=== PATIENT | female | born 1980 | race Caucasian/White ===

== ENCOUNTER → 2018-03-21 09:11 | Outpatient (CLI) | payer MEDICAID, SELFPAY ==
[2018-03-21 12:06] LABS: Erythrocyte Sedimentation Rate 35 mm/hr (0-20)
[2018-03-21 12:26] LABS: AST(SGOT) 39 U/L (15-37); Alanine Aminotransfer ALT/SGPT 67 U/L (13-56); Albumin, Serum 3.5 g/dL (3.2-5.0); Alkaline Phosphatase 103 U/L (45-117); Bilirubin, Direct 0.13 mg/dL (0.00-0.30); Globulin 4.7 g/dL (2.2-4.2); Protein, Total 8.2 g/dL (6.4-8.2)
[2018-03-22 05:08] LABS: Hepatitis C Ab <0.1 s/co ratio (0.0-0.9)
[2018-03-22 08:50] LABS: Vitamin D,25 Hydroxy 35.3 ng/mL (29.95-100.01)
== END ==
PROVIDERS: Family Provider Specialist; PCP Specialist; Visit Provider Specialist
DX: K76.0 Fatty (change of) liver, not elsewhere classified (principal)
CPT/HCPCS: 36415; 80076; 82306; 85652; 86803; 86804

== ENCOUNTER → 2019-01-01 11:07 | Outpatient (CLI) | payer MEDICAID, SELFPAY ==
--- NOTE | 2019-01-01 11:12 | RAD_ITS ---
STUDY: X-RAY - LUMBAR SPINE REASON FOR EXAM: Female, 38 years old. Chronic low back pain TECHNIQUE: 5 view(s) of the lumbar spine were obtained. COMPARISON: None FINDINGS: Normal lumbar lordosis. There is no substantial scoliosis. There is a normal alignment of the vertebrae. Normal vertebral bodies and endplates. Normal disc space heights. The soft tissue structures are unremarkable. RAD/L/S Spine Min 4 Views IMPRESSION: Normal x-ray examination of the lumbar spine. Electronically Signed: Rosalio Bravo DO at 9:39 EST Tel , Service support ,
[2019-01-01 12:41] LABS: Absolute Neutrophil Count 3.7 X10^3/uL (2.0-7.7); Basophil# 0.03 X10^3/uL; Basophil% 0.5 % (0-1); Eosinophils% 1.6 % (0-5); Hematocrit 46.5 % (37-47); Hemoglobin 14.8 g/dl (12.0-15.0); Lymphocyte % 33.2 % (19-41); Mean Corp Hgb Conc 31.8 g/gl (32-36); Mean Platelet Vol. 9.8 fl (6.2-12.0); Monocyte# 0.42 X10^3/uL; Monocyte% 6.6 % (0-10); Neutrophil # 3.67 X10^3/uL (2.7-7.7); Neutrophil % 57.9 % (47-70); Platelet Count 289 K/mm3 (150-450); RBC Distribution Width CV 13.3 % (11.6-14.6); Red Blood Count 5.11 M/mm3 (4.2-5.4); White Blood Count 6.3 K/mm3 (4.4-11.0)
[2019-01-01 12:45] LABS: POSITIVE COUNT NO; POSITIVE DIFFERENTIAL NO; POSITIVE MORPHOLOGY NO
[2019-01-01 13:02] LABS: ALB/GLOB Ratio 0.8 RATIO (0.9-2.4); AST(SGOT) 35 U/L (15-37); Alanine Aminotransfer ALT/SGPT 66 U/L (13-56); Albumin, Serum 3.5 g/dL (3.2-5.0); Alkaline Phosphatase 102 U/L (45-117); Anion Gap 8 (5-15); BUN 9 mg/dL (7-18); BUN/Creat Ratio 13.1 RATIO (10-20); Calcium,Total 8.5 mg/dL (8.5-10.1); Chloride 108 mmol/L (98-107); Cholesterol 167 mg/dL (200); Creatinine, Serum 0.69 mg/dL (0.55-1.02); EST Glomerular Filtration Rate 100 mL/min (>60); Est Glom Filt Rate - Afr Amer 121 mL/min (>60); Globulin 4.6 g/dL (2.2-4.2); Glucose 85 mg/dL (74-106); Hemoglobin A1c 5.5 % (4.2-6.3); High Density Lipoprotein 38 mg/dL; Potassium 4.1 mmol/L (3.5-5.1); Protein, Total 8.1 g/dL (6.4-8.2); Sodium Level 139 mmol/L (136-145); Thyroid Stim Hormone (TSH) 1.91 uIU/mL (0.358-3.74); Triglycerides 94 mg/dL; Very Low Density Lipoprotein 19 mg/dL (5-40)
[2019-01-01 13:03] LABS: Vitamin B12 749 pg/mL (211-911)
[2019-01-04 13:23] LABS: HEPATITIS B SURFACE AG Negative (Negative); Hep B Surface Antibodies Non Reactive (.); Hep C Antibodies <0.1 s/co ratio (0.0-0.9); Vitamin B1, Thiamine 134.9 nmol/L (66.5-200.0)
== END ==
PROVIDERS: Family Provider Family Medicine; PCP Family Medicine; Referring Provider Family Medicine; Visit Provider Family Medicine
DX: E55.9 Vitamin D deficiency, unspecified (principal); G62.9 Polyneuropathy, unspecified; R73.02 Impaired glucose tolerance (oral); E66.9 Obesity, unspecified; E04.1 Nontoxic single thyroid nodule; R94.5 Abnormal results of liver function studies; M54.16 Radiculopathy, lumbar region
CPT/HCPCS: 36415; 72110; 80053; 80061; 82306; 82607; 83036; 84425; 84439; 84443; 85025; 86706; 86803; 87340

== ENCOUNTER → 2019-01-08 08:55 | Outpatient (CLI) | payer MEDICAID, SELFPAY ==
--- NOTE | 2019-01-08 08:58 | US_ITS ---
HISTORY: THYROID NODULE TECHNIQUE: [place] scale and color doppler imaging was performed of the thyroid gland. COMPARISON: None FINDINGS: # of images incl. paperwork: 72 RIGHT THYROID LOBE: 5.1 x 2.0 x 1.9 cm. Homogeneous echotexture with normal vascularity. Isoechoic to thyroid parenchyma nodule in the posterior aspect of the lower pole, 1.0 cm diameter. This is a solid nodule with peripheral and intra-nodule vascularity. LEFT THYROID LOBE: 4.5 x 1.4 x 2.1 cm. Homogeneous echotexture with normal vascularity. 0.6 cm diameter cystic avascular nodule in the upper pole. 0.4 cm diameter cystic avascular nodule in the lower pole. ISTHMUS: 0.5 cm thick. No thyroid nodules are present. US/Thyroid IMPRESSION: 1 cm diameter isoechoic nodule lower pole right thyroid. This has low suspicion ultrasound appearance. Per THERESA guidelines, consider either referral for biopsy or six-month follow-up ultrasound to assess for stability. at 0324 Reported and signed by: Mikey Armendariz MD Electronically Signed: Mikey Armendariz, at 3:23 EST Tel , Service support ,
== END ==
PROVIDERS: Family Provider Family Medicine; PCP Family Medicine; Referring Provider Family Medicine; Visit Provider Family Medicine
DX: E04.1 Nontoxic single thyroid nodule (principal)
CPT/HCPCS: 76536

== ENCOUNTER → 2019-01-30 14:36 | Outpatient (CLI) | payer MEDICAID, SELFPAY ==
[2019-01-16 13:21] VITALS: BMI 37.5
--- NOTE | 2019-01-30 | ASPIG_PTH ---
PATIENT: LAURIE ARMSTRONG LOC: U#:[id number] AGE/SX: 45/F ROOM: RE01/30/[address]: Dr. Arnie Terrell MD : 1980 BED: DIS: SPEC #: [id number] RECD: 01/30/19 15:27 STATUS: MARCEL HUSAM #: [id number] FRANCESCA: 01/30/19 00:[address]: Arnie Terrell DEPT: CYTOLOGY RECD BY: Dewey Latham ENTERED: 01/30/19 15:27 SP TYPE: ASP OUT OTHR DR: Dr. Cyrus Barahona MD Tissues: Thyroid gland, NOS Procedures: FNA Specimen Adequacy Special Stain Group II Surgery Specimen Level IV Cytology Other HEADER OPERATION: Ultrasound-guided right thyroid biopsy PRE-OP DIAGNOSIS: Right thyroid nodule TISSUE SUBMITTED: Right thyroid nodule, FNA, ultrasound-guided DIAGNOSIS CYTOLOGY Right thyroid nodule, ultrasound-guided FNA (smears, cytospin and cell block): Consistent with benign colloid nodule. Adequate for evaluation. TREY:jazz 01/31/19 COMMENT The specimen is evaluated at the time of FNA by Dr. Christy. Immediate Evaluation = A few follicular cells and colloid are noted. Case has been reviewed in consultation with Dr. Ballesteros who concurs with the above diagnosis. IDC:AM CYTOLOGY STUDY Slides are reviewed. CYTOLOGY GROSS Received in four passes is 0.2 ml of bloody fluid labeled with the patient's name, and designated right thyroid nodule. Four imprints and four paps are made from the submitted fluid and the rest is added to CytoLyt for cell block preparation. Submitted for cytology study. / TREY:jazz 01/30/19 TC:5 CPT: 38167, 54593, 17596, 93516
--- NOTE | 2019-01-30 14:38 | US_ITS ---
PROCEDURE: ULTRASOUND-GUIDED FINE-NEEDLE ASPIRATION OF THE RIGHT THYROID LOBE NODULE INDICATION: Female, 39 years old. Thyroid nodule Ultrasound guidance FINDINGS: Right thyroid lobe nodule. The biopsy is performed by Arnie Steward MD US/FNA 1st Biopsy w/ US IMPRESSION: Right thyroid lobe nodule biopsy. Electronically Signed: Pati Carpenter, at 16:18 EDT Tel , Service support ,
--- NOTE | 2019-01-31 07:21 | PCM.OPRPT ---
Problem List (1) Multinodular goiter (nontoxic) Status: Acute Report of Operation Date of Procedure: 01/30/19 Pre-Operative Diagnosis: Multinodular goiter Post-Operative Diagnosis: Same Surgery/Procedure Performed:: Ultrasound-guided fine-needle aspiration of dominant right thyroid nodule Type of Anesthesia:: Local Description of Procedure: Patient was brought into the ultrasound room. Placed in the supine position. Ultrasound of the right neck revealed a vague nodule in the inferior aspect of the lobe. I prepped the skin with alcohol. I injected 1% lidocaine plain. Under ultrasound guidance I aspirated out this nodule 4 times. This was immediately handed off to the pathologist. She said she saw some rare follicular cells and colloid I decided that I was not going to do any further biopsies on her at this time given the vagueness of this nodule I think the incidence of having a false positive would be too high and she started to have some bruising within the gland itself and I did not feel it was safe to continue. - Admit VTE Documentation VTE Present on Admission: No VTE Mechan Device Prophylaxis: None VTE Pharm Prophylaxis ordered?: No Reason prophylaxis not ordered:: Treatment Not Indicated
== END ==
PROVIDERS: Family Provider Family Medicine; PCP Family Medicine; Referring Provider Surgery; Visit Provider Surgery
DX: E04.2 Nontoxic multinodular goiter (principal)
CPT/HCPCS: 10005; 88161; 88172; 88305; 88313

== ENCOUNTER 2019-03-05 17:00 | Outpatient (RCR) | payer MEDICAID, SELFPAY ==
[2019-01-16 13:21] VITALS: BMI 37.5
--- NOTE | 2019-01-31 14:00 | HP.PTEVAL_ITS ---
Patient's Visit Information LAURIE ARMSTRONG is a 39 year old F referred to Physical Therapy by Cyrus Barahona MD with a diagnosis of LUMBAR RADICULOPATHY WITH NEUROPATHY. Date of Evaluation: 01/31/19 Physical Therapist: Jenna Decker, PT, Cert MDT - Visit Plan Frequency: 2-3x /Week Duration: 4-6 Weeks Plan: AQUATIC THERAPY FOR PAIN RELEIF, POSTURE CORRECTION/STRENGTHENING, INSTRUCTION IN APPROPRIATE BODY MECHANICS AND ACTIVITY MODIFICATIONS. DLS STARTING WITH A NEUTRAL SPINE PROGRESSING ROM TOLERATED. MORALES LE ROM, STRETCHING AND STRENGTHENING. HEP INSTRUCTION. 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 Disability: NO. Present symptoms: CENTRAL LOW BACK, RIGHT THIGH, RIGHT LEG AND RIGHT FOOT PAIN NUMBNESS AND TINLGIN. OUTSIDE OF FOOT GETS NUMB AND TINGLY. Present since: ABOUT A YEAR AGO. UNCHANGING. Pain Scale: WORST 7/10, LEAST 2/10. Currently: 3/10. Commenced as a result of: NO APPARENT REASON. Symptoms at onset: LOW BACK. Worse: PROLONGED STANDING, PROLONGED SITTING, RIGHT SDLY, SUPINE LYING, BENDING, LIFTING, TWISTING, PROLONGED WALKING. Better: IBUPROFEN, FREQUENT CHANGE OF POSITION. Disturbed sleep: YES. Previous history/Previous treatment: NONE YET. ON GABAPENTIN. STATES THEY ARE TRYING TO SCHEDULE AN EMG. NO BACK SURGERY. NO BACK INJECTIONS. NO PT. NO CHIRO. Coughing/sneezing/straining: POSITIVE. Gait: PAINFUL AND LIMP ON RIGHT LE. SLOW. OFF BALANCE. DOES NOT USE ANY ASSISTIVE DEVICES. Difficulty initiating urinatin: NO. Accidents: NO. Unexplained weight loss: NO. Imaging: X-RAYS OF LOW BACK - NEGATIVE PER PATIENT REPORT - SEE [facility] EMR. PMH: FATTY LIVER. Recent major surgery: THYROID BIOPSY YESTERDAY - HAS NOT RECIEVED RESULTS YET. PLOF (Prior Level of Function): UNLIMITED. OTHER: FALL ABOUT A WEEK AGO WHEN SHE STOOD UP AND RIGHT LEG GAVE OUT ON HER. NO INJURIES. ABOUT 3 FALLS WITHIN THE LAST 6 WEEKS. - Objective Sitting Posture/Standing Posture: POOR. Active Correction of posture: WORSE. Other Observations: INDEP SLOW STEADY GAIT INTO PT WITH A MILD LIMP ON RIGHT LE AND NO AD'S OR LOB. Motor deficit: LLE 5/5 WITH MMT'ING EXCEPT HIP GRADED 4/5. RIGHT HIP 4-/5, KNEE EXT 4-/5, KNEE FLEX 4/5, ANKLE 5/5. Sensory deficit: DECREASED RIGHT LATERAL THIGH, LEG AND FOOT LIGHT TOUCH SENSATION. ROM deficit: TIGHT MORALES HAMSTRINGS AND GASTROC SOLEUS COMPLEX'S RIGHT > LEFT. Reflexes: LLE 2/3, RIGHT QUAC 1/2 AND RIGHT ACHILLES ABSENT. Dural Signs: POSITIVE RIGHT LE. Lumbar mvmt loss: flex - MOD. ext - MOD. R SG - MOD. L SG - MIN. Core strength: POOR. Palpation: TENDERNESS L345S1 REGION AND RIGHT PARASPINALS. OTHER: PATIENT IS RATHER QUIET DURING EVAL BUT IS PLEASANT AND COOPERATIVE. SHE COMMUNICATES A FAIR UNDERSTANDING OF INSTRUCTIONS (CANE AND LUMBAR SUPPORT IN SITTING) AFTER GIVEN. - Goals Goal 1:: DECREASE C/O LOW BACK AND MORALES LE SX'S. Goal Time Frame: 4-6 Weeks Goal 2:: IMPROVE SITTING, STANDING, WALKING, BENDING, LIFTING, ADL AND SLEEP FUNCTION Goal Time Frame: 4-6 Weeks Goal 3:: INSTRUCT IN PROPHYLAXIS Goal Time Frame: 4-6 Weeks - Rehabilitation Potential Rehabilitation Potential: Fair - Anticipated Interventions Patient/Client Instruction: Educate patient on: Condition, Plan of Care, Risk Factors, Benefits of Fitness Program For the Purpose of:: To improve self management Therapeutic Exercise to Include: Strength training, Body mechanics, Postural training, Flexibilty training, In an aquatic setting, Active ROM, Dynamic Lumbar Stabilization For the Purpose of:: To decrease pain, To increase ROM, To improve muscle performance and motor function, To increase tolerance to ac tivity/condition/position, To improve ability of physical actions for home/community/work/leisure Thank you for the opportunity to evaluate your patient. For Medicare and Medicare HMO plans, please review the plan of care and approve it. It will need to be FAXED BACK to us at [phone] for Medicare purposes. For Medicare only, by signing this I certify the plan of care. Please let me know if there are questions or concerns regarding this plan of care. Physician Signature: Date:
--- NOTE | 2019-02-26 10:21 | HP.PTREVAL ---
Cyrus Barahona MD, It has been my pleasure to treat LAURIE ARMSTRONG over the last 7 visits for LUMBAR RADICULOPATHY WITH NEUROPATHY. Please see the progress note below for an update on the physical therapy plan of care! Subjective: PATIENT REPORTS SHE ISN'T TAKING MUCH IBUPROFEN AND GABAPENTIN BECAUSE IT FEELS BETTER. SHE REPORTS SHE IS ABLE TO GET MORE DONE IN THE HOUSE NOW TOO - TAKES LESS BREAKES BECAUSE THE PAIN IS BETTER. RIGHT THIGH PAIN COMES AND GOES BUT LEG/CALF PAIN IS CONSTANT. EMG HAS NOT BEEN SCHEDULED YET AND PATIENT DOES NOT KNOW WHY. NO FALLS SINCE STARTING PT. THYROID BIOPSY WAS BENIGN. PATIENT REPORTS SHE LIKES THE WATER THERAPY AND WANTS TO KEEP COMING. SHE REPORTS NOTHING HAS HELPED HER PAIN SINCE IT STARTED ABOUT A YEAR AGO MORE THAN THIS. Objective/Function: PATIENT IS MAKING SLOW PROGRESS TOWARD ALL PT GOALS BUT STILL HAS CONSTANT RIGHT LEG PAIN AND DECREASED RIGHT LE LIGHT TOUCH SENSATION ALONG WITH ABSENT RIGHT ACHILLES DTR. INDEP STEADY GAIT INTO PT WITH A MILD LIMP ON RIGHT LE (BETTER) AND NO AD'S OR LOB. Motor deficit: LLE 5/5 WITH MMT'ING EXCEPT HIP GRADED 4/5. RIGHT HIP 4-/5, KNEE EXT 4/5, KNEE FLEX 4/5, ANKLE 5/5. Sensory deficit: DECREASED RIGHT LATERAL THIGH, LEG AND FOOT LIGHT TOUCH SENSATION. ROM deficit: TIGHT MORALES HAMSTRINGS AND GASTROC SOLEUS COMPLEX'S RIGHT > LEFT. Reflexes: LLE 2/3, RIGHT QUAC 1/2 AND RIGHT ACHILLES ABSENT. Dural Signs: POSITIVE RIGHT LE. Lumbar mvmt loss: flex - MIN TO MOD. ext - MOD. R SG - MOD. L SG - MIN. PATIENT REPORTS LESS PAIN WITH ROM TESTING TODAY COMPARED TO INITIAL EVAL AND MORALES SG TESTING PROVOKES MORE PAIN IN LOW BACK THAN FLEX AND EXTENSION. Core strength: POOR. Palpation: TENDERNESS L345S1 REGION AND RIGHT PARASPINALS. LUMBAR OSWESTRY HAS IMPROVED FROM 20 TO 12. PATIENT COMMUNICATED AND DEMONSTRATED A GOOD UNDERSTANDING OF ALL INSTRUCTIONS AFTER GIVEN TODAY. Plan Plan: CONT AQUATIC THERAPY PER POC 2-3 TIMES A WEEK X 4-6 WEEKS. Goals Goal 1:: DECREASE C/O LOW BACK AND MORALES LE SX'S. Goal Time Frame: 4-6 Weeks Goal Progress: Progressing Goal 2:: IMPROVE SITTING, STANDING, WALKING, BENDING, LIFTING, ADL AND SLEEP FUNCTION Goal Time Frame: 4-6 Weeks Goal Progress: Progressing Goal 3:: INSTRUCT IN PROPHYLAXIS Goal Time Frame: 4-6 Weeks Goal Progress: Progressing Anticipated Interventions Patient/Client Instruction: Educate patient on: Condition, Plan of Care, Risk Factors, Benefits of Fitness Program For the Purpose of:: To improve self management Therapeutic Exercise to Include: Strength training, Body mechanics, Postural training, Flexibilty training, In an aquatic setting, Active ROM, Dynamic Lumbar Stabilization For the Purpose of:: To decrease pain, To increase ROM, To improve muscle performance and motor function, To increase tolerance to activity/condition/position, To improve ability of physical actions for home/community/work/leisure Please do not hesitate to contact me at [phone] by phone or if you have questions or concerns regarding this new plan of care! Sincerely, Jenna Decker, PT, Cert MDT
--- NOTE | 2019-03-30 16:21 | HP.PT.NRP ---
HP - Discharge Summary (1) - Patient Information LAURIE ARMSTRONG was seen in my office for initial evaluation on 01/31/19. The following Plan of Care was established for this patient: Initial Frequency: 2-3x /Week Initial Duration: 4-6 Weeks - Anticipated Interventions Patient/Client Instruction: Educate patient on: Condition, Plan of Care, Risk Factors, Benefits of Fitness Program For the Purpose of:: To improve self management Therapeutic Exercise to Include: Strength training, Body mechanics, Postural training, Flexibilty training, In an aquatic setting, Active ROM, Dynamic Lumbar Stabilization For the Purpose of:: To decrease pain, To increase ROM, To improve muscle performance and motor function, To increase tolerance to activity/condition/position, To improve ability of physical actions for home/community/work/leisure This patient was last seen in our office . Pertinent comments regarding their Physical therapy will appear below: This patient has not returned to Physical Therapy and is appropriate to return to MD for further follow-up as needed. At this point I will be discontinuing this patient from physical therapy. I would be happy to see this patient again in the future if found appropriate by the physician. Thank you! Jenna Decker, PT, Cert MDT
== END 2019-03-05 19:00 | disposition home or self-care (01) ==
LOC: PT 17:00
PROVIDERS: Family Provider Family Medicine; PCP Family Medicine; Referring Provider Family Medicine; Visit Provider Family Medicine
DX: M54.16 Radiculopathy, lumbar region (principal); G62.9 Polyneuropathy, unspecified
CPT/HCPCS: 97113; 97162; 97530

== ENCOUNTER 2019-07-04 21:11 | Emergency (ER) | payer MEDICAID, SELFPAY ==
[2019-01-16 13:21] VITALS: BMI 37.5
[2019-07-04 21:12] VITALS: BP 183/113; PULSE 87; RESP 20; TEMP 36.6; O2SAT 95; BMI 36.1
--- NOTE | 2019-07-04 21:30 | CT_ITS ---
STUDY: CT ABDOMEN AND PELVIS WITHOUT CONTRAST REASON FOR EXAM: Female, 39 years old. Right flank pain RADIATION DOSAGE (If Supplied By Facility): CTDIvol = ( 21.28 ) mGy, DLP = ( 1106.08 ) mGycm TECHNIQUE: Transaxial images were obtained from the dome of the diaphragm to the symphysis pubis without oral contrast, and without intravenous contrast. Sagittal and coronal images were reconstructed. Individualized dose optimization techniques were used for this CT. COMPARISON: None. FINDINGS: There is minor atelectasis within the dependent portion of the lungs.. Small calcified granuloma in right lower lobe The visualized portions of the heart are within normal limits. Normal liver. Gallbladder has been removed surgically Normal spleen. Normal pancreas. Normal bilateral adrenal glands. Mild right renal pelvocaliectasis secondary to proximal ureteral calculus measuring 4-5 mm in size. Normal left kidney. Normal visualized stomach. Normal small intestine. Minor diverticular changes of the sigmoid colon without evidence for acute diverticulitis The appendix is visualized and appears normal. Normal abdominal aorta. Normal inferior vena cava. Normal retroperitoneum. Postsurgical changes status post tubal ligation. Incompletely distended thick-walled prolapsed bladder.. Normal abdominal wall. Lumbar spine demonstrates mild spondylosis. CT/Abdomen/Pelvis without Cont IMPRESSION: Mild right renal pelvocaliectasis secondary to proximal ureteral calculus measuring 4 to 5 mm in caliber Other findings as above Electronically Signed: Garry Matta MD at 22:08 EDT , Service support ,
--- NOTE | 2019-07-04 21:32 | ED.DCSUM_ITS ---
- ER Visit Summary Date of Service: 07/04/19 Chief Complaint: Right flank pain History of Present Illness: The patient is a 39 F history of prior kidney stones. Prior cholecystectomy and Esher procedure. Patient states that about an hour prior to arrival she had right flank pain rating her groin. Associated nausea and vomiting. Had some mild diarrhea yesterday. No fever or dysuria. No trauma. Physical Examination: Middle-aged female. Complains of pain. Vital signs are stable and afebrile. H EENT exam unremarkable. Neck nontender. Lungs clear to auscultation. Heart regular rhythm no murmur. Abdomen is soft and nontender normal bowel sounds no peritoneal signs. Patient is moving all 4 extremities. Neurovascular intact. Back is nontender no CVA tenderness. Neurologically she is awake alert with no focal motor deficits. Test Results: CBC White count 10. Hemoglobin 14. Chemistries normal normal creatinine and gap. UA positive nitrates 5-10 white cells greater than 100 red cells on micro 5-10 epithelial cells rare bacteria. Urine culture was sent. This will be treated as a possible UTI. Serum test negative. CT flank showed mild right renal pelvo-calyceal ectasis. With a right proximal ureter 4 to 5 mm stone with hydronephrosis. Emergency Department Course and Treatment: Treated with IV fluids, Toradol, morphine and Zofran. Labs and CT pending. Repeat exam at 20 2:45 PM patient is doing well. Says her pain is well under control. She is comfortable being discharged home. Will be given a dose of p.o. Keflex in the ER. We discussed all of her test results. She knows to return if worse. Treatment Plan: Fluids and rest. [place] and Motrin for pain. Keflex 4 times daily. Follow-up if not improving or return if worse. Disposition: Discharge Impression: Acute right flank pain secondary to right proximal ureter 5 mm kidney stone UTI This note was generated with [employer] dictation software. It may contain incorrect words, spelling, and punctuation that were not noted in review of the chart prior to signing ED Disposition - Plan for ED Patient: Referrals: Cyrus Barahona MD [Primary Care Provider] -
[2019-07-04] MEDS: Ketorolac 30 MG/ML Syringe IV (21:36)
[2019-07-04] MEDS: Ondansetron 4 MG/2 ML Vial IV (21:36)
[2019-07-04] MEDS: Morphine 4 MG/ML Syringe 6 MG IV (21:36)
[2019-07-04] MEDS: 0.9% Normal Saline 1,000 ML 1000 ML IV (21:36)
[2019-07-04 21:57] LABS: Internal QC Validated? YES +Cl - CLEAR BKGD; Pregnancy, Serum, hCG Quali. NEGATIVE Negative
[2019-07-04 22:02] LABS: Anion Gap 9 (5-15); BUN 9 mg/dL (7-18); BUN/Creat Ratio 10.3 RATIO (10-20); Calcium,Total 9.1 mg/dL (8.5-10.1); Chloride 110 mmol/L (98-107); Creatinine, Serum 0.87 mg/dL (0.55-1.02); EST Glomerular Filtration Rate 76 mL/min (>60); Est Glom Filt Rate - Afr Amer 92 mL/min (>60); Estimated Creatinine Clearance 82.75 ml/min; Glucose 102 mg/dL (74-106); Potassium 3.5 mmol/L (3.5-5.1); Sodium Level 139 mmol/L (136-145)
[2019-07-04 22:05] LABS: Mucous, Urine 0 SEEN /hpf (<or=2+)
[2019-07-04 22:10] LABS: Absolute Lymphocyte Count 3.04 X10^3/uL (0.83-4.51); Absolute Neutrophil Count 6.2 X10^3/uL (2.0-7.7); Basophil# 0.03 X10^3/uL; Basophil% 0.3 % (0-1); Eosinophil# 0.13 X10^3/uL; Eosinophils% 1.3 % (0-5); Hematocrit 43.1 % (37-47); Hemoglobin 14.5 g/dL (12.0-15.0); Lymphocyte # 3.04 X10^3/ul (4.0); Lymphocyte % 29.9 % (19-41); Mean Corp Hgb Conc 33.6 g/dL (32-36); Mean Corpuscular Hgb 29.8 pg (27.0-32.0); Mean Corpuscular Volume 88.5 fL (81-99); Monocyte# 0.72 X10^3/uL; Monocyte% 7.1 % (0-10); NRBC Flagged by Analyzer 0 % (0-5); Platelet Count 299 K/mm3 (150-450); RBC Distribution Width CV 12.3 % (11.6-14.6); RBC Distribution Width SD 40.2 fl (35.1-43.9); Red Blood Count 4.87 M/mm3 (4.2-5.4); White Blood Count 10.2 K/mm3 (4.4-11.0)
[2019-07-04 22:12] LABS: Color, Urine Amber (Yellow); Glucose, Dipstick Normal (Normal); Ketone-Dipstick 15 mg/dl (Negative); Leukocyte Esterase-Dipstick 100 /ul (Negative); Nitrite-Dipstick Positive (Negative); Occult Blood-Urine 250 /ul (Negative); Protein-Dipstick 100 mg/dl (Negative); Specific Gravity, Urine 1.025 (1.002-1.030); Urine Bilirubin Dipstick 1 mg/dL (Negative); Urine Clarity Cloudy (Clear); Urine Urobilinogen 4 mg/dl (Normal)
[2019-07-04 22:19] LABS: Red Blood Cells-Urine > 100 SEEN /hpf (0-5)
[2019-07-04 22:20] LABS: Bacteria RARE /hpf (None Seen); White Blood Cells 5-10 SEEN /hpf (0-5)
[2019-07-04 22:21] LABS: Squamous Epithelial Cells - UA 5-10 SEEN /hpf (5-10)
--- NOTE | 2019-07-04 22:47 | ED.DEP ---
ED Disposition - Plan for ED Patient: Disposition: Home or Assisted Living Instructions: Urinary Tract Infections in Women, KIDNEY STONE w/ Colic Prescriptions: Cephalexin [Keflex] 500 mg PO Q6 #30 cap Prescription Printed Hydrocodone Bitart/Apap 5-325 [[place] 5MG-325MG] 1 tab PO Q4H PRN PRN #14 tab PRN Reason: Pain Prescription Printed Hydrocodone/Acetaminophen [[place] 7.5-325 Tablet] 1 ea PO Q4H PRN PRN 4 Days #14 tab PRN Reason: Pain Prescription Printed Referrals: Cyrus Barahona MD [Primary Care Provider] - As Needed Seb Hernández MD [STAFF PHYSICIAN] - As Needed Additional Instructions: [place] and Motrin as needed for pain. Keflex 1 pill 4 times a day as the antibiotic for possible urinary tract infection. Plenty of fluids and strain your urine for the passed stone. Follow-up as needed or return if feeling worse.
[2019-07-04] MEDS: Cephalexin 250 MG Capsule 500 MG PO (22:56)
[2019-07-04 23:01] VITALS: BP 139/94; PULSE 76; RESP 14; O2SAT 97
== END 2019-07-04 23:09 | disposition home or self-care (01) ==
PROVIDERS: Emergency Provider Emergency Medicine; Family Provider Family Medicine; PCP Family Medicine
DX: N13.2 Hydronephrosis with renal and ureteral calculous obstruction (principal); N39.0 Urinary tract infection, site not specified; Z87.442 Personal history of urinary calculi; Z72.0 Tobacco use
CPT/HCPCS: 74176; 80048; 81001; 84703; 85025; 87086; 87088; 96361; 96374; 96375; 99285; J7030; A4216; J2405

== ENCOUNTER 2020-04-14 14:14 | Emergency (ER) | payer MEDICAID, SELFPAY ==
[2020-04-14 14:15] VITALS: BP 150/108; PULSE 112; RESP 18; TEMP 36.6; O2SAT 98; BMI 36.6
--- NOTE | 2020-04-14 15:43 | CT_ITS ---
STUDY: CT SOFT TISSUE NECK WITH CONTRAST REASON FOR EXAM: Female, 40 years old. DENTAL PAIN AND SWELLING, HTN, PREV TONSILLECTOMY RADIATION DOSAGE (If Supplied By Facility): CTDIvol = ( 22.11 ) mGy, DLP = ( 590.76 ) mGycm TECHNIQUE: The patient was scanned in a multi-detector CT scanner. High resolution transaxial imaging was performed following intravenous administration of IV 100mL Isovue-300. Sagittal and coronal images were reconstructed. Individualized dose optimization techniques were used for this CT. COMPARISON: None. FINDINGS: Normal bilateral parotid glands. 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 Normal bilateral parapharyngeal spaces. Normal bilateral carotid spaces. Normal bilateral sublingual and submandibular glands and spaces. Normal visualized nasopharynx. Normal retropharyngeal space. Normal perivertebral space. The visualized tongue, tongue base and oropharynx are normal. The visualized cervical lymph nodes (levels I-) are within normal size limits, and maintain normal morphology. There is no demonstrated solid or cystic mass lesion. There is no abnormal contrast enhancement. Normal epiglottis, bilateral vallecula and hypopharynx. The pre-epiglottic and paraglottic adipose spaces are normal. Normal visualized bilateral piriform sinuses, aryepiglottic folds, vocal cords, and arytenoid-cricoid articulations. Normal subglottic trachea. Normal bilateral lobes of the thyroid gland. Normal visualized pulmonary apices. Normal visualized paranasal sinuses. Normal visualized cervical spine. CT/Soft Tissue Neck WITH Contrast IMPRESSION: Normal enhanced CT examination of the soft tissues of the neck. Note that this examination should not be considered to replace a dedicated dental exam. Electronically Signed: Boy Rolon MD at 17:31 EDT , Service support ,
[2020-04-14] MEDS: Ketorolac 15 MG/ML Vial IV (16:35)
[2020-04-14] MEDS: 0.9% Normal Saline 1,000 ML 1000 ML IV (16:36)
[2020-04-14 16:39] VITALS: BP 126/96; PULSE 97; RESP 16; O2SAT 96
--- NOTE | 2020-04-14 16:47 | ED.DCSUM_ITS ---
History of Present Illness Chief Complaint: Dental Narrative: Patient presenting for evaluation secondary to dental pain and facial swelling. Patient reports over the course the last couple of days she has been dealing with dental pain. It focally is on the lower right jaw, she feels that it may be associated with an abscess because she started to develop swelling in the area. Patient reports that she has been getting some subjective fevers and chills. She has been taking [id number] analgesics with minimal relief of her pain. Patient denies that she has had any sort of objective fevers with this. She reports that she feels some swelling underneath her chin now. No difficulty with opening her mouth, or swallowing. No shortness of breath. Review of systems otherwise negative. Past Medical History - Allergies and Home Meds Allergies/Adverse Reactions: Allergies prednisone Allergy (Severe, Verified 04/14/20 14:17) Angioedema ciprofloxacin [From Cipro] Adverse Reaction (Mild, Verified 04/14/20 14:17) Other ciprofloxacin HCl [From Cipro] Adverse Reaction (Mild, Verified 04/14/20 14:17) Other Primary Care Physician: Cyrus Barahona MD [Primary Care Provider] - Prior records reviewed: Yes Past Medical History: - - Goiter Smoking Status: Current every day smoker Review of Systems General: Denies: Fever Eyes: Denies: Visual changes - bilaterally, Diplopia ENT: Reports: - - Dental pain Cardiovascular: Denies: Chest pain, Palpitations Respiratory: Denies: Dyspnea, Cough, Dyspnea on exertion Gastrointestinal: Denies: Abdominal pain, Nausea, Vomiting, Diarrhea, Melena, Hematochezia Genitourinary: Denies: Dysuria, Hematuria, Frequency Musculoskeletal: Denies: Back pain, Extremity Pain Skin: Denies: Rash, Wounds Neurological: Denies: Headache, Weakness, Numbness Physical Exam Vital Signs/Narrative: Vital Signs Temp Pulse Resp BP Pulse Ox 04/14/20 16:39 97 16 126/96 H 96 04/14/20 14:15 97.8 F 112 H 18 150/108 H 98 Inital Vital Signs reviewed: Yes General: Well nourished, Well developed Head: Normocephalic, Atraumatic ENT: Moist mucous membranes, No rhinorrhea Mouth/Throat: - - Patient has poor dentition with widespread dental decay. No focal abscess noted at the gums, but the patient seems to have some firmness of the sublingual space. Oropharynx is clear, no evidence of difficulty with phonation or stridor. There is swelling noted in the submental space on palpation of the neck. Neck: Submandibular soft tissue swelling Cardiovascular: Regular rhythm, No murmurs, Tachycardia Respiratory: No distress, CTA bilaterally, Chest nontender Abdomen: Soft, Nontender, Nondistended, Normal bowel sounds Back: Nontender, Normal Inspection Extremities: Nontender, No edema Skin: Normal color, No rash Neurological: Alert, Oriented x3, Cranial nerves II-XII grossly intact, Normal Strength, Normal Sensation Psychological: Normal affect Diagnostic/Tx/Re-eval Clinical Impression(s) from Imaging Studies Soft Tissue Neck CT 04/14/20 15:43 IMPRESSION: Normal enhanced CT examination of the soft tissues of the neck. Note that this examination should not be considered to replace a dedicated dental exam. Electronically Signed: Boy Rolon MD at 17:31 EDT , Service support , Laboratory Data 04/14/20 04/14/20 16:40 16:40 WBC 9.6 RBC 5.01 Hgb 14.9 Hct 45.5 MCV 90.8 MCH 29.7 MCHC 32.7 RDW Std Deviation 41.0 RDW Coeff of Mary 12.6 Plt Count 281 MPV 9.3 Immature Gran % (Auto) 0.400 Neut % (Auto) 76.0 H Lymph % (Auto) 15.9 L [place] % (Auto) 7.3 Eos % (Auto) 0.2 Baso % (Auto) 0.2 Absolute Neuts (auto) 7.3 Absolute Lymphs (auto) 1.53 Nucleated RBC % 0 Sodium 140 Potassium 3.6 Chloride 107 Carbon Dioxide 26.0 Anion Gap 7 BUN 9 Creatinine 0.75 Estim Creat Clear Calc 95.02 Est GFR (MDRD) Af Amer 110 Est GFR (MDRD) Non-Af 91 BUN/Creatinine Ratio 12.1 Glucose 94 Calcium 9.1 - Medical Decision Making Patient presented secondary to a dental infection. Physical exam did show the patient to have some neck swelling, was concern for the possibility of development of Zev's angina, so laboratory work and CT were ordered. Patient was empirically given Unasyn, and Toradol. CBC and chemistry un remarkable. CT of the soft tissue neck per radiology is negative. Patient likely at this point has a simple dental infection. She will be treated with a course of penicillin and Toradol for treatment of pain. She was instructed she needs to follow-up with a dentist. ED Disposition - Plan for ED Patient: Disposition: Home or Assisted Living Diagnosis: Dental infection Instructions: ED ABSCESS DENTAL Prescriptions: Penicillin V Potassium 500 mg PO 4X/DAY #40 tab Prescription Printed Ketorolac [Toradol] 10 mg PO Q6H PRN #20 tab PRN Reason: Pain Or Fever Prescription Printed Referrals: Cyrus Barahona MD [Primary Care Provider] - Additional Instructions: Followup with a dentist [place]
[2020-04-14 16:49] LABS: Absolute Lymphocyte Count 1.53 X10^3/uL (0.83-4.51); Absolute Neutrophil Count 7.3 X10^3/uL (2.0-7.7); Basophil# 0.02 X10^3/uL; Basophil% 0.2 % (0-1); Eosinophil# 0.02 X10^3/uL; Eosinophils% 0.2 % (0-5); Hematocrit 45.5 % (37-47); Hemoglobin 14.9 g/dL (12.0-15.0); Lymphocyte # 1.53 X10^3/ul (4.0); Lymphocyte % 15.9 % (19-41); Mean Corp Hgb Conc 32.7 g/dL (32-36); Mean Corpuscular Hgb 29.7 pg (27.0-32.0); Mean Corpuscular Volume 90.8 fL (81-99); Mean Platelet Vol. 9.3 fl (6.2-12.0); Monocyte% 7.3 % (0-10); NRBC Flagged by Analyzer 0 % (0-5); Neutrophil # 7.32 X10^3/uL (2.7-7.7); Platelet Count 281 K/mm3 (150-450); RBC Distribution Width CV 12.6 % (11.6-14.6); Red Blood Count 5.01 M/mm3 (4.2-5.4); White Blood Count 9.6 K/mm3 (4.4-11.0)
[2020-04-14 17:03] LABS: Anion Gap 7 (5-15); BUN 9 mg/dL (7-18); BUN/Creat Ratio 12.1 RATIO (10-20); Calcium,Total 9.1 mg/dL (8.5-10.1); Chloride 107 mmol/L (98-107); Creatinine, Serum 0.75 mg/dL (0.55-1.02); EST Glomerular Filtration Rate 91 mL/min (>60); Est Glom Filt Rate - Afr Amer 110 mL/min (>60); Estimated Creatinine Clearance 95.02 ml/min; Glucose 94 mg/dL (74-106); Potassium 3.6 mmol/L (3.5-5.1); Sodium Level 140 mmol/L (136-145)
[2020-04-14 17:52] VITALS: BP 128/75; PULSE 90; RESP 17; O2SAT 96
== END 2020-04-14 17:54 | disposition home or self-care (01) ==
PROVIDERS: Emergency Provider Emergency Medicine; PCP Family Medicine
DX: K04.7 Periapical abscess without sinus (principal); F17.200 Nicotine dependence, unspecified, uncomplicated
CPT/HCPCS: 70491; 80048; 85025; 96365; 96375; 99283; J7030; Q9967; A4216; J3490

== ENCOUNTER 2020-04-15 22:36 | Inpatient (IN) | payer MEDICAID, SELFPAY ==
[2020-04-14 14:15] VITALS: BMI 36.6
[2020-04-15 22:37] VITALS: BP 152/95; PULSE 109; RESP 18; TEMP 36.8; O2SAT 97; BMI 36.6
[2020-04-15 22:39] VITALS: BP 152/95; PULSE 109; RESP 18; TEMP 36.8; O2SAT 97
--- NOTE | 2020-04-15 23:02 | CT_ITS ---
STUDY: CT SOFT TISSUE NECK WITH CONTRAST REASON FOR EXAM: Female, 40 years old. NECK SWELLING AND REDNESS CENTER OF NECK BELOW JAW -- SEEN FOR SAME YESTERDAY BUT WORSE NOW -- HX:HTN RADIATION DOSAGE (If Supplied By Facility): CTDIvol = ( 18.34 ) mGy, DLP = ( 481.03 ) mGycm TECHNIQUE: The patient was scanned in a multi-detector CT scanner. High resolution transaxial imaging was performed following intravenous administration of IV 75mL Isovue-370. Sagittal and coronal images were reconstructed. Individualized dose optimization techniques were used for this CT. COMPARISON: 04/14/2020. FINDINGS: Normal bilateral parotid glands. Normal bilateral director acute spaces. Normal bilateral parapharyngeal spaces. Normal bilateral carotid spaces. Normal bilateral submandibular glands and spaces. Normal visualized nasopharynx and posterior oropharynx. Normal retropharyngeal space. Normal perivertebral space. Normal visualized bilateral faucial tonsils. Rim-enhancing low-attenuation lesion in the right mylohyoid muscle measures 2.8 x 1.1 x 1.2 cm, consistent with organizing abscess. Findings are best demonstrated on series 601 image 42 and series 602 image 26-27. There is swelling of the right mylohyoid muscle compared to the left. There is mild soft tissue stranding in the submental subcutaneous tissues. Findings are new or significantly increased compared to the prior study. Mild right submandibular adenopathy. Normal epiglottis, bilateral vallecula and hypopharynx. The pre-epiglottic and paraglottic adipose spaces are normal. Normal visualized bilateral piriform sinuses, aryepiglottic folds, vocal cords, and arytenoid-cricoid articulations. Normal subglottic trachea. Normal bilateral lobes of the thyroid gland. Normal visualized pulmonary apices. Normal visualized paranasal sinuses. Normal visualized cervical spine. CT/Soft Tissue Neck WITH Contrast IMPRESSION: 1. Organizing collection in the right mylohyoid muscle, highly suspicious for Herminio''s angina. Urgent ENT consultation is advised. Secondary findings are detailed above. N.B. : The above information has been verbally conveyed by Leonor Harrison MD to Sahra Steel MD, on 04/15/2020 23:54:49 (ET). Electronically Signed: Leonor Harrison MD at 23:55 EDT Tel , Service support ,
[2020-04-15] MEDS: 0.9% Normal Saline 1,000 ML 150 ML IV (23:20)
[2020-04-15 23:30] LABS: Absolute Lymphocyte Count 1.84 X10^3/uL (0.83-4.51); Absolute Neutrophil Count 7.7 X10^3/uL (2.0-7.7); Basophil# 0.02 X10^3/uL; Basophil% 0.2 % (0-1); Eosinophil# 0.01 X10^3/uL; Eosinophils% 0.1 % (0-5); Hematocrit 40.7 % (37-47); Hemoglobin 13.3 g/dL (12.0-15.0); Lymphocyte # 1.84 X10^3/ul (4.0); Lymphocyte % 17.5 % (19-41); Mean Corp Hgb Conc 32.7 g/dL (32-36); Mean Corpuscular Hgb 29.8 pg (27.0-32.0); Mean Corpuscular Volume 91.1 fL (81-99); Mean Platelet Vol. 9.4 fl (6.2-12.0); Monocyte# 0.91 X10^3/uL; Monocyte% 8.6 % (0-10); NRBC Flagged by Analyzer 0 % (0-5); Neutrophil # 7.72 X10^3/uL (2.7-7.7); Neutrophil % 73.2 % (47-70); Platelet Count 248 K/mm3 (150-450); RBC Distribution Width CV 12.5 % (11.6-14.6); RBC Distribution Width SD 41.3 fl (35.1-43.9); Red Blood Count 4.47 M/mm3 (4.2-5.4); White Blood Count 10.5 K/mm3 (4.4-11.0)
[2020-04-15 23:39] VITALS: BP 135/84; PULSE 92; RESP 18; TEMP 36.9; O2SAT 96
[2020-04-15 23:44] LABS: Anion Gap 8 (5-15); BUN 10 mg/dL (7-18); BUN/Creat Ratio 13.2 RATIO (10-20); Calcium,Total 8.7 mg/dL (8.5-10.1); Chloride 106 mmol/L (98-107); Creatinine, Serum 0.76 mg/dL (0.55-1.02); EST Glomerular Filtration Rate 89 mL/min (>60); Est Glom Filt Rate - Afr Amer 108 mL/min (>60); Estimated Creatinine Clearance 93.77 ml/min; Glucose 104 mg/dL (74-106); Potassium 3.4 mmol/L (3.5-5.1); Sodium Level 140 mmol/L (136-145)
[2020-04-16] VITALS (16 sets, daily range): BP systolic 123–155; BP diastolic 71–102; PULSE 83–108; RESP 15–18; TEMP 36.4–37.7; O2SAT 94–98; BMI 36.9; BMI 37.0
[2020-04-16] MEDS: Ondansetron 4 MG/2 ML Vial IV (00:48)
[2020-04-16] MEDS: Morphine 4 MG/ML Syringe IV ×2 (00:48→05:44)
--- NOTE | 2020-04-16 00:53 | HP.PCM_ITS ---
Problem List (1) Submandibular abscess Status: Acute (2) Hypokalemia Status: Acute (3) Tobacco use Status: Chronic (4) Obesity (BMI 30-39.9) Status: Chronic (5) GERD (gastroesophageal reflux disease) Status: Chronic Qualifiers: Esophagitis presence: esophagitis presence not specified Qualified Code(s): K21.9 - Gastro-esophageal reflux disease without esophagitis History of Present Illness Date of Admission: 04/16/20 Chief Complaint: Neck swelling, pain The patient is a 40 y/o F w/ PMHx: Obesity, Chronic back pain, Hx Thyroid Nodules, Tobacco use who presents to the [facility] ED on 04/16/30 with history of several days of progressively worsening submandibular discomfort with significant history of poor dentition with multiple caries evaluated on 04/15/2020 secondary to this discomfort ongoing since the Tuesday prior to current presentation with at that time unremarkable labs and unremarkable CT with suspected dental infection placed on penicillin with discharge to home however patient now returns with worsening swelling, worsening discomfort with mild submandibular redness with no specific fever or chills nor any difficulty swallowing. Patient was evaluated by dentistry 3 weeks prior and was reportedly told that she needed all of her teeth removed however she notes she has been having difficulty having this intervention set up secondary to insurance. ED physician did discuss case with ENT, Dr. Bridges who noted planned evaluation in AM agreement with antibiotic therapy in interim. Work-up in the ED included T 98.3, heart rate 109, BP 152/95, respiratory rate 18, 97% on room air, CBC with WBC 10.5, hemoglobin 13.3, platelet 248 without market shift, BMP with potassium 3.4 otherwise unremarkable, CT neck soft tissue with organizing collection in the right mylohyoid muscle highly suspicious for Zev's angina. In the ED patient ministered Zofran, morphine, normal saline and clindamycin. Past Medical History Past Medical History (Chronic Problems): Chronic Problems (Last Reviewed 01/16/19 @ 14:[address] Arnie Terrell MD) Tobacco use (Chronic) Obesity (BMI 30-39.9) (Chronic) GERD (gastroesophageal reflux disease) (Chronic) Medical History: Medical History (Last Reviewed 01/16/19 @ 14:[address] Arnie Terrell MD) Anxiety F41.9 History of back problems Thyroid nodule E04.1 Allergies prednisone Allergy (Severe, Verified 04/14/20 14:17) Angioedema ciprofloxacin [From Cipro] Adverse Reaction (Mild, Verified 04/14/20 14:17) Other ciprofloxacin HCl [From Cipro] Adverse Reaction (Mild, Verified 04/14/20 14:17) Other Home Medications: Ambulatory Orders Medication Instructions Recorded Hydrocodone Bitart/Apap 5-325 1 tab PO Q4H PRN PRN #14 tab 07/04/19 [Barton 5MG-325MG] Ketorolac [Toradol] 10 mg PO Q6H PRN #20 tab 04/14/20 Penicillin V Potassium 500 mg PO 4X/DAY #40 tab 04/14/20 Surgical History: Surgical History (Last Reviewed 01/16/19 @ 14:[address] Arnie Terrell MD) History of laparoscopic cholecystectomy Z90.49 History of tonsillectomy Z90.89 History of tympanoplasty of right ear Z98.890 Surgical History: - - Cholecystectomy, tonsillectomy, right ear surgery in her youth. 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 Tobacco Use: Cigarettes Alcohol: None Drugs: None - *Family History Maternal History Items: Diabetes, High Cholesterol, Heart Disease, Hypertension, Renal Disease Paternal History Items: Diabetes, High Cholesterol, Heart Disease, Hypertension, Renal Disease Review of Systems Constitutional: Reports: Anorexia, Malaise, Weakness, Fatigue. Denies: Chills, Fever, Weight Change HEENT: Reports: Difficulty Swallowing, - - Submandibular edema, pain, erythema.. Denies: Head Aches, Sinus Congestion, Sinus Drainage Cardiovascular: Denies: Chest Pain, Palpitations Respiratory: Denies: Cough, Shortness of Breath, Shortness of breath at rest, Shortness of breath upon exertion, Sputum production Gastrointestinal: Denies: Abdominal Pain, Nausea, Vomiting Genitourinary: Denies: Dysuria Musculoskeletal: Reports: Back Pain, Joint Pain. Denies: Joint Tenderness Skin: Reports: Skin Changes. Denies: Rash, Wounds Neurological: Denies: Numbness, Tingling, Focal weakness Psychiatric: Denies: Anxiety, Depression, Homicidal Ideations, Suicidal Ideations Hematologic/ Lymphatic: Denies: Easy Bruising, Easy Bleeding VTE Information - Inpt Only VTE Present on Admission: No VTE Mechan Device Prophylaxis: SCD's VTE Pharm Prophylaxis ordered?: No Reason prophylaxis not ordered:: Medical Contraindication - Hold for planned a.m. OR likely. Patient Problems: Active and Suspected Problems (Last Reviewed 01/16/19 @ 14:[address] Arine Terrell MD) Submandibular abscess (Acute) Hypokalemia (Acute) Subjective: Patient seated upright in ED bed, fatigued and uncomfortable appearing. Objective: Physical Examination: General: awake, alert, oriented x 3 and cooperative, seated upright in the ED bed, fatigued and uncomfortable appearing. Skin: normal color, turgor, no icterus, cyanosis except obvious submandibular erythema extending to the lateral neck, left greater than right. HEENT: AT/NC, EOMI, PERRLA, mildly dry MM, extremely poor dentition with several caries, significant submandibular edema, erythema, tenderness to palpation and fullness, unable to assess carotid bruits or JVD given acute presentation as noted. Lungs: CTA bilaterally, moderate effort, moderate decrease BL bases, no rales, ronchi or wheezing. Heart: Mildly tachycardic with regular rhythm; no gallop, rub audible. Abdomen: soft, obese, NTTP, ND, normal BS, no HSM. Extremities: no cyanosis, clubbing, or edema. Neurological: patient awake, alert, oriented x 3; cognitive function intact; pupils equally reactive to light and accomodation; cranial nerves II-XII grossly normal, moving all 4 extremities, no focal deficits, strength moderately global decrease secondary to acute presentation. Psychiatric: affect appears fatigued and mildly uncomfortable, no acute evidence of depressive or anxiety feelings. - Physical Exam Vitals/I&O's: Vital Signs Temp Pulse Resp BP Pulse Ox 98.1 F 92 18 134/82 H 96 04/16/20 00:00 04/16/20 00:37 04/16/20 00:37 04/16/20 00:37 04/16/20 00:37 Oxygen Delivery Method Room Air Weight: 233 lb 12.8 oz Body Mass Index (BMI) 36.6 Intake and Output for Last 24 Hours 06/01/20 06/02/20 06/03/20 23:59 23:59 23:59 Intake Total 106 / 106 Balance 106 / 106 Laboratory Results 04/15/20 23:12: WBC 10.5, RBC 4.47, Hgb 13.3, Hct 40.7, MCV 91.1, MCH 29.8, MCHC 32.7, RDW Std Deviation 41.3, RDW Coeff of Mary 12.5, Plt Count 248, MPV 9.4, Immature Gran % (Auto) 0.400, Neut % (Auto) 73.2 H, Lymph % (Auto) 17.5 L, [place] % (Auto) 8.6, Eos % (Auto) 0.1, Baso % (Auto) 0.2, Absolute Neuts (auto) 7.7, Absolute Lymphs (auto) 1.84, Nucleated RBC % 0 04/15/20 23:12: Sodium 140, Potassium 3.4 L, Chloride 106, Carbon Dioxide 26.0, Anion Gap 8, BUN 10, Creatinine 0.76, Estim Creat Clear Calc 93.77, Est GFR (MDRD) Af Amer 108, Est GFR (MDRD) Non-Af 89, BUN/Creatinine Ratio 13.2, Glucose 104, Calcium 8.7 Current Medications Sodium Chloride () 1,000 mls @ 150 mls/hr IV .Q6H40M HAILEY Last Admin: 04/15/20 23:20 Dose: 150 mls/hr Documented by: Assessment/Plan All Active Problems (Last Reviewed 01/16/19 @ 14:[address] Arnie Terrell MD) Multinodular goiter (nontoxic) (Acute) Submandibular abscess (Acute) Hypokalemia (Acute) The patient is a 40 y/o F w/ PMHx: Obesity, Chronic back pain, Hx Thyroid Nodules, Tobacco use who presents to the [facility] ED on 04/16/30 with history of several days of progressively worsening submandibular discomfort with significant history of poor dentition with multiple caries with worsening submandibular edema, pain and now onset erythema. 1. Acute Submandibular Space Infection: Given patient appropriate airway management and no obvious distress, managing secretions will admit to the PCU, maintain on airway with close continued airway monitoring with transition to ICU if necessary, continue ENT surgery consultation, maintain on Unasyn as well as Flagyl, trend CBC, maintain NPO status, PRN oral and IV pain regimen, aspiration precautions, suspect likely OR in AM. COVID requested given likely OR plan. 2. Hypokalemia: Admission K+ 3.4, magnesium level requested, supplementation given, repeat level in AM. 3. Elevated BP without hypertensive diagnosis: Elevated BP upon presentation, likely secondary to pain however to be cautious will continue to closely monitor, PRN IV hydralazine in interim. 4. Tobacco Abuse: Encouraged cessation, inpatient consultation per RT, NR if desired. 5. Obesity: Weight loss and lifestyle changes encouraged. 6. GERD: Maintained on famotidine. 7. DVT prophylaxis: SCDs, hold any chemoprophylaxis pending ENT evaluation as likely OR. Inpatient E&M: 86308 Init Hosp L3
--- NOTE | 2020-04-16 00:56 | ED.DCSUM_ITS ---
- ER Visit Summary Date of Service: 04/16/20 Chief Complaint: Jaw swelling History of Present Illness: The patient is a 40 F [presents to the emergency department with swelling in the anterior aspect of her neck and submandibular region that started 3 days ago. Patient was seen in the emergency department for same complaint yesterday and had lab work as well as a CT scan of her neck that was unremarkable. Patient was started on penicillin and sent home. Patient states that despite taking the penicillin she feels like the swelling is gotten worse. She has some discomfort with swallowing. She denies difficulty breathing. She is had no fevers or chills.] Patient has no significant medical history. Physical Examination: [HEENT-PERRLA, EOMI. Cranial nerves II through XII grossly intact. TMs clear. Mucous membranes moist. No adenopathy. Patient does have anterior swelling underneath the mandible and submental region with some faint erythema noted. There is induration noted. She is able to stick her tongue to the roof of her mouth. Just mild fullness to the floor the mouth. No discrete abscess palpated. Cardiovascular-regular rate and rhythm without murmur or ectopy Lungs-clear to auscultation, chest wall stable without crepitus or subcu emphysema Abdomen-normoactive bowel sounds, soft, nontender, no rebound or rigidity, no peritoneal signs. Extremities-intact ?4, normal range of motion, normal pulses, atraumatic] Test Results: [CBC with differential was normal. Chemistries unremarkable. CT scan of the neck showed organizing collection in the right mylohyoid muscle highly suspicious for Ludewig's angina. Urgent ENT consultation advised. Patient was noted to have an abscess measuring 2.8 x 1.1 x 1.2 cm to the area of the right mylohyoid muscle.] Emergency Department Course and Treatment: [On arrival patient had an IV line established and was started on clindamycin 900 mg IV. Results discussed with ear nose and throat physician on-call Dr. Vinicio Salinas. I was asked to admit patient to hospitalist and he will evaluate patient in the a.m.] Treatment Plan: [Admit for IV antibiotics] Disposition: [Admit] Impression: [Submandibular abscess suspicious for early Zev's angina.] This note was generated with [employer] software. It may contain incorrect words, spelling, and punctuation that were not noted in review of the chart prior to signing ED Disposition - Plan for ED Patient: Referrals: Cyrus Barahona MD [Primary Care Provider] -
[2020-04-16] MEDS: 0.9% Normal Saline 1,000 ML 125 ML IV ×3 (02:50→22:10)
[2020-04-16] MEDS: metroNIDAZOLE 500 MG/100 ML BAG 100 MG IV (03:51)
[2020-04-16] MEDS: oxyCODONE 5 MG Tablet PO (03:55)
[2020-04-16 05:16] LABS: Absolute Lymphocyte Count 1.57 X10^3/uL (0.83-4.51); Absolute Neutrophil Count 9.1 X10^3/uL (2.0-7.7); Basophil# 0.02 X10^3/uL; Basophil% 0.2 % (0-1); Hematocrit 37.7 % (37-47); Hemoglobin 12.6 g/dL (12.0-15.0); Lymphocyte # 1.57 X10^3/ul (4.0); Lymphocyte % 13.6 % (19-41); Mean Corp Hgb Conc 33.4 g/dL (32-36); Mean Corpuscular Hgb 29.9 pg (27.0-32.0); Mean Corpuscular Volume 89.5 fL (81-99); Mean Platelet Vol. 9.2 fl (6.2-12.0); Monocyte# 0.81 X10^3/uL; NRBC Flagged by Analyzer 0 % (0-5); Neutrophil # 9.07 X10^3/uL (2.7-7.7); Neutrophil % 78.8 % (47-70); Platelet Count 232 K/mm3 (150-450); RBC Distribution Width CV 12.3 % (11.6-14.6); RBC Distribution Width SD 40.7 fl (35.1-43.9); Red Blood Count 4.21 M/mm3 (4.2-5.4); White Blood Count 11.5 K/mm3 (4.4-11.0)
[2020-04-16 05:37] LABS: ALB/GLOB Ratio 0.7 RATIO (0.9-2.4); AST(SGOT) 58 U/L (15-37); Alanine Aminotransfer ALT/SGPT 53 U/L (13-56); Albumin, Serum 2.8 g/dL (3.2-5.0); Alkaline Phosphatase 119 U/L (45-117); Anion Gap 8 (5-15); BUN 8 mg/dL (7-18); BUN/Creat Ratio 11.6 RATIO (10-20); Chloride 108 mmol/L (98-107); Creatinine, Serum 0.69 mg/dL (0.55-1.02); EST Glomerular Filtration Rate 99 mL/min (>60); Est Glom Filt Rate - Afr Amer 120 mL/min (>60); Estimated Creatinine Clearance 103.29 ml/min; Globulin 4.3 g/dL (2.2-4.2); Glucose 105 mg/dL (74-106); Potassium 3.5 mmol/L (3.5-5.1); Protein, Total 7.1 g/dL (6.4-8.2); Sodium Level 139 mmol/L (136-145)
--- NOTE | 2020-04-16 08:04 | CON.PCM_ITS ---
Problem List (1) Submandibular abscess Status: Acute Reason for Consult Date of Consultation: 04/16/20 History of Present Illness: The patient is a 40 year old F who presented to the ED last night with a worsening odontogenic infection and right submental collection. known poor dentition. WBC 11k. no dyspnea, no voice changes. notes odynophagia and pain- limited trismus. CT with fusiform submental collection, 2.5cm. Past Medical History Past Medical History (Chronic Problems): Chronic Problems (Last Reviewed 01/16/19 @ 14:[address] Arnie Terrell MD) Tobacco use (Chronic) Obesity (BMI 30-39.9) (Chronic) GERD (gastroesophageal reflux disease) (Chronic) Medical History: Medical History (Last Reviewed 01/16/19 @ 14:[address] Arnie Terrell MD) Anxiety F41.9 History of back problems Thyroid nodule E04.1 Allergies prednisone Allergy (Severe, Verified 04/14/20 14:17) Angioedema ciprofloxacin [From Cipro] Adverse Reaction (Mild, Verified 04/14/20 14:17) Other ciprofloxacin HCl [From Cipro] Adverse Reaction (Mild, Verified 04/14/20 14:17) Other Home Medications: Ambulatory Orders Medication Instructions Recorded Ketorolac [Toradol] 10 mg PO Q6H PRN #20 tab 04/14/20 Penicillin V Potassium 500 mg PO 4X/DAY 04/16/20 Surgical History: Surgical History (Last Reviewed 01/16/19 @ 14:[address] Arnie Terrell MD) History of laparoscopic cholecystectomy Z90.49 History of tonsillectomy Z90.89 History of tympanoplasty of right ear Z98.890 Surgical History: - - Cholecystectomy, tonsillectomy, right ear surgery in her youth. 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 Arnie Terrell MD) Submandibular abscess (Acute) Hypokalemia (Acute) Subjective: x - Physical Exam Vitals/I&O's: Vital Signs Temp Pulse Resp BP Pulse Ox 98.5 F 100 16 123/80 H 97 04/16/20 05:50 04/16/20 05:50 04/16/20 05:50 04/16/20 05:50 04/16/20 07:27 Oxygen Delivery Method Room Air Weight: 107.1 kg Body Mass Index (BMI) 36.9 Intake and Output for Last 24 Hours 04/14/20 04/15/20 04/16/20 23:59 23:59 23:59 Intake Total 1145.41 / 1145.41 Balance 1145.41 / 1145.41 General: Alert, Oriented x3, Cooperative HEENT: TM's Clear Oral: - - 2cm trismus. very mild floor of mouth watery edema. soft palate normal. global poor dentition. Laboratory Results 04/15/20 23:12: WBC 10.5, RBC 4.47, Hgb 13.3, Hct 40.7, MCV 91.1, MCH 29.8, MCHC 32.7, RDW Std Deviation 41.3, RDW Coeff of Mary 12.5, Plt Count 248, MPV 9.4, Immature Gran % (Auto) 0.400, Neut % (Auto) 73.2 H, Lymph % (Auto) 17.5 L, [place] % (Auto) 8.6, Eos % (Auto) 0.1, Baso % (Auto) 0.2, Absolute Neuts (auto) 7.7, Absolute Lymphs (auto) 1.84, Nucleated RBC % 0 04/15/20 23:12: Sodium 140, Potassium 3.4 L, Chloride 106, Carbon Dioxide 26.0, Anion Gap 8, BUN 10, Creatinine 0.76, Estim Creat Clear Calc 93.77, Est GFR (MDRD) Af Amer 108, Est GFR (MDRD) Non-Af 89, BUN/Creatinine Ratio 13.2, Glucose 104, Calcium 8.7 04/15/20 23:12: Magnesium 2.0 04/16/20 01:20: COVID-19 ([facility]) Not Detected 04/16/20 05:00: WBC 11.5 H, RBC 4.21, Hgb 12.6, Hct 37.7, MCV 89.5, MCH 29.9, MCHC 33.4, RDW Std Deviation 40.7, RDW Coeff of Mary 12.3, Plt Count 232, MPV 9.2, Immature Gran % (Auto) 0.400, Neut % (Auto) 78.8 H, Lymph % (Auto) 13.6 L, [place] % (Auto) 7.0, Eos % (Auto) 0.0, Baso % (Auto) 0.2, Absolute Neuts (auto) 9.1 H, Absolute Lymphs (auto) 1.57, Nucleated RBC % 0 04/16/20 05:00: Sodium 139, Potassium 3.5, Chloride 108 H, Carbon Dioxide 23.0, Anion Gap 8, BUN 8, Creatinine 0.69, Estim Creat Clear Calc 103.29, Est GFR (MDRD) Af Amer 120, Est GFR (MDRD) Non-Af 99, BUN/Creatinine Ratio 11.6, Glucose 105, Calcium 8.0 L, Total Bilirubin 0.90, AST 58 H, ALT 53, Alkaline Phosphatase 119 H, Total Protein 7.1, Albumin 2.8 L, Globulin 4.3 H, Albumin/Globulin Ratio 0.7 L Current Medications Acetaminophen (Tylenol) 650 mg PO Q6H PRN PRN PRN Reason: Pain Score 1-10/Temp > 100.7 F Al Hydroxide/Mg Hydroxide (Mylanta Ii) 30 ml PO Q6H PRN PRN PRN Reason: Gastric Burning Albuterol Sulfate (Ventolin Aerosols) 2.5 mg INHALATION Q2H PRN PRN PRN Reason: Dyspnea, wheezing Dextrose (D50w Syringe) 0 gm IV X1 PRN; Protocol PRN Reason: Hypoglycemia Famotidine (Pepcid) 20 mg PO BID [facility] Glucagon () 1 mg IM .X1 PRN PRN Reason: Hypoglycemia Guaifenesin (Robitussin) 20 ml PO Q4H PRN PRN PRN Reason: COUGH Hydralazine HCl (Apresoline Iv) 10 mg IV Q4H PRN PRN PRN Reason: SBP > 160 Sodium Chloride () 1,000 mls @ 125 mls/hr IV .Q8H [facility] Last Infusion: 04/16/20 06:31 Dose: 125 mls/hr Documented by: Ampicillin Sodium/Sulbactam (Sodium 3 gm/ Sodium Chloride) 112 mls @ 150 mls/hr IV Q6 [facility] Last Infusion: 04/16/20 06:31 Dose: Infused Documented by: Metronidazole (Flagyl) 500 mg in 100 mls @ 100 mls/hr IV Q8 [facility] Last Infusion: 04/16/20 04:51 Dose: Infused Documented by: Ibuprofen (Motrin) 400 mg PO Q4H PRN PRN PRN Reason: Pain Score 1-10/Temp > 100.7 F Magnesium Hydroxide (Milk Of Magnesia) 30 ml PO DAILY PRN PRN PRN Reason: Constipation Melatonin (Melatonin) 3 mg PO QHS PRN PRN PRN Reason: INSOMNIA Morphine Sulfate () 4 mg IV Q3H PRN PRN PRN Reason: Pain Score 6-10/10 Last Admin: 04/16/20 05:44 Dose: 4 mg Documented by: Nicotine (Nicoderm Cq (Pbkc)) 21 mg TRANSDERM. DAILY [facility] Last Admin: 04/16/20 03:04 Dose: Not Given Documented by: Ondansetron HCl (Zofran) 4 mg IV Q8H PRN PRN PRN Reason: NAUSEA/VOMITING Oxycodone HCl (Oxyir) 5 mg PO Q4H PRN PRN PRN Reason: Pain Score 4-5/10 Last Admin: 04/16/20 03:55 Dose: 5 mg Documented by: Prochlorperazine Edisylate (Compazine Iv) 5 mg IV Q4H PRN PRN PRN Reason: Breakthrough Nausea/Vomiting Psyllium Hydrophilic Mucilloid (Metamucil) 1 packet PO DAILY PRN PRN PRN Reason: Constipation Senna/Docusate Sodium (Senokot-S, Eneida-Colace) 2 tablet PO BID PRN PRN PRN Reason: Constipation Sodium Chloride () 10 - 40 ml IV UD PRN PRN Reason: SALINE FLUSH Throat Lozenges (Cepacol Sore Throat Lozenge) 1 lozenge MUCOUS MEM Q2H PRN PRN PRN Reason: SORE THROAT Assessment/Plan All Active Problems (Last Reviewed 01/16/19 @ 14:[address] Arnie Terrell MD) Multinodular goiter (nontoxic) (Acute) Submandibular abscess (Acute) Hypokalemia (Acute) right odontogenic infection with submental collection -2cm trismus. very mild floor of mouth watery edema. soft palate normal. global poor dentition. -recommend decadron, IV antibiotics covering for staph and anaerobes. -OMFS consult as this is a primary odontogenic infection
--- NOTE | 2020-04-16 08:10 | PN_ITS ---
Patient Problems: Active and Suspected Problems (Last Reviewed 01/16/19 @ 14:[address] Arnie Terrell MD) Submandibular abscess (Acute) Hypokalemia (Acute) Reason for Visit: Submandibular swelling, Herminio's angina Objective: Patient admitted with 4-day history of progressive worsening swelling of sub mandibular region along with pain without fever and chills. This is started with right molar tooth infection for which she went to the dentist 3 weeks ago and was given penicillin but it got worse. Denies difficulty in breathing but has dysphagia not able to swallow solid food. Vitals/I&O's: Vital Signs Temp Pulse Resp BP Pulse Ox 98.5 F 100 16 123/80 H 97 04/16/20 05:50 04/16/20 05:50 04/16/20 05:50 04/16/20 05:50 04/16/20 07:27 Oxygen Delivery Method Room Air Weight: 236 lb 1.841 oz Body Mass Index (BMI) 36.9 Intake and Output for Last 24 Hours 04/14/20 04/15/20 04/16/20 23:59 23:59 23:59 Intake Total 1145.41 / 1145.41 Balance 1145.41 / 1145.41 General: Alert, Oriented x3, Cooperative HEENT: Atraumatic, PERRLA, EOMI, Normocephalic, - - On ER exam, there is yellowish, film like discoloration anterior to tympanic membrane. Patient has history of tubes in the past Neck: Supple, No JVD, Negative Carotid Bruits, - - Submandibular region swelling present from right mandibular angle past midline. Patient not able to open mouth completely, trismus. On per oral exam there is tenderness over floor of the mouth with swelling. Tenderness also in the buccal cavity. Lungs: Clear to auscultation, Normal air movement, No rhonchi, No wheeze, No rales Cardiovascular: Regular rate, Regular Rhythm, Normal S1, Normal S2, No murmurs Abdomen: Bowel Sounds Present, Soft, Non Tender Extremities: No edema, Capillary Refill Less than 3 Seconds Skin: Rash Present - Mild erythema tenderness present over swelling Musculoskeletal: No Tenderness to Palpation of Joints or Extremities Neurological: Cranial nerves II-XII grossly intact, Deep Tendon Reflexes 2+/4 and Symmetrical, Neuro grossly intact Psych/Mental Status: Normal Affect, Appropriate Laboratory Results 04/15/20 23:12: WBC 10.5, RBC 4.47, Hgb 13.3, Hct 40.7, MCV 91.1, MCH 29.8, MCHC 32.7, RDW Std Deviation 41.3, RDW Coeff of Mary 12.5, Plt Count 248, MPV 9.4, Immature Gran % (Auto) 0.400, Neut % (Auto) 73.2 H, Lymph % (Auto) 17.5 L, [place] % (Auto) 8.6, Eos % (Auto) 0.1, Baso % (Auto) 0.2, Absolute Neuts (auto) 7.7, Absolute Lymphs (auto) 1.84, Nucleated RBC % 0 04/15/20 23:12: Sodium 140, Potassium 3.4 L, Chloride 106, Carbon Dioxide 26.0, Anion Gap 8, BUN 10, Creatinine 0.76, Estim Creat Clear Calc 93.77, Est GFR (MDRD) Af Amer 108, Est GFR (MDRD) Non-Af 89, BUN/Creatinine Ratio 13.2, Glucose 104, Calcium 8.7 04/15/20 23:12: Magnesium 2.0 04/16/20 01:20: COVID-19 ([facility]) Not Detected 04/16/20 05:00: WBC 11.5 H, RBC 4.21, Hgb 12.6, Hct 37.7, MCV 89.5, MCH 29.9, MCHC 33.4, RDW Std Deviation 40.7, RDW Coeff of Mary 12.3, Plt Count 232, MPV 9.2, Immature Gran % (Auto) 0.400, Neut % (Auto) 78.8 H, Lymph % (Auto) 13.6 L, [place] % (Auto) 7.0, Eos % (Auto) 0.0, Baso % (Auto) 0.2, Absolute Neuts (auto) 9.1 H, Absolute Lymphs (auto) 1.57, Nucleated RBC % 0 04/16/20 05:00: Sodium 139, Potassium 3.5, Chloride 108 H, Carbon Dioxide 23.0, Anion Gap 8, BUN 8, Creatinine 0.69, Estim Creat Clear Calc 103.29, Est GFR (MDRD) Af Amer 120, Est GFR (MDRD) Non-Af 99, BUN/Creatinine Ratio 11.6, Glucose 105, Calcium 8.0 L, Total Bilirubin 0.90, AST 58 H, ALT 53, Alkaline Phosphatase 119 H, Total Protein 7.1, Albumin 2.8 L, Globulin 4.3 H, Albumin/Globulin Ratio 0.7 L Current Medications Acetaminophen (Tylenol) 650 mg PO Q6H PRN PRN PRN Reason: Pain Score 1-10/Temp > 100.7 F Al Hydroxide/Mg Hydroxide (Mylanta Ii) 30 ml PO Q6H PRN PRN PRN Reason: Gastric Burning Albuterol Sulfate (Ventolin Aerosols) 2.5 mg INHALATION Q2H PRN PRN PRN Reason: Dyspnea, wheezing Dexamethasone Sodium Phosphate (Decadron) 10 mg IV X1 ONE Stop: 04/16/20 08:06 Dextrose (D50w Syringe) 0 gm IV X1 PRN; Protocol PRN Reason: Hypoglycemia Famotidine (Pepcid) 20 mg PO BID [place] Glucagon () 1 mg IM .X1 PRN PRN Reason: Hypoglycemia Guaifenesin (Robitussin) 20 ml PO Q4H PRN PRN PRN Reason: COUGH Hydralazine HCl (Apresoline Iv) 10 mg IV Q4H PRN PRN PRN Reason: SBP > 160 Sodium Chloride () 1,000 mls @ 125 mls/hr IV .Q8H [facility] Last Infusion: 04/16/20 06:31 Dose: 125 mls/hr Documented by: Ampicillin Sodium/Sulbactam (Sodium 3 gm/ Sodium Chloride) 112 mls @ 150 mls/hr IV Q6 [facility] Last Infusion: 04/16/20 06:31 Dose: Infused Documented by: Clindamycin Phosphate 600 mg/ (Dextrose) 54 mls @ 100 mls/hr IV Q8 [facility] Stop: 04/16/20 22:33 Ibuprofen (Motrin) 400 mg PO Q4H PRN PRN PRN Reason: Pain Score 1-10/Temp > 100.7 F Magnesium Hydroxide (Milk Of Magnesia) 30 ml PO DAILY PRN PRN PRN Reason: Constipation Melatonin (Melatonin) 3 mg PO QHS PRN PRN PRN Reason: INSOMNIA Morphine Sulfate () 4 mg IV Q3H PRN PRN PRN Reason: Pain Score 6-10/10 Last Admin: 04/16/20 05:44 Dose: 4 mg Documented by: Nicotine (Nicoderm Cq (Pbkc)) 21 mg TRANSDERM. DAILY [facility] Last Admin: 04/16/20 03:04 Dose: Not Given Documented by: Ondansetron HCl (Zofran) 4 mg IV Q8H PRN PRN PRN Reason: NAUSEA/VOMITING Oxycodone HCl (Oxyir) 5 mg PO Q4H PRN PRN PRN Reason: Pain Score 4-5/10 Last Admin: 04/16/20 03:55 Dose: 5 mg Documented by: Prochlorperazine Edisylate (Compazine Iv) 5 mg IV Q4H PRN PRN PRN Reason: Breakthrough Nausea/Vomiting Psyllium Hydrophilic Mucilloid (Metamucil) 1 packet PO DAILY PRN PRN PRN Reason: Constipation Senna/Docusate Sodium (Senokot-S, Eneida-Colace) 2 tablet PO BID PRN PRN PRN Reason: Constipation Sodium Chloride () 10 - 40 ml IV UD PRN PRN Reason: SALINE FLUSH Throat Lozenges (Cepacol Sore Throat Lozenge) 1 lozenge MUCOUS MEM Q2H PRN PRN PRN Reason: SORE THROAT STROKE Vital Signs/Narrative: Vital Signs Temp Pulse Resp BP Pulse Ox 04/16/20 07:27 97 04/16/20 05:50 98.5 F 100 16 123/80 H 96 Medical Necessity - Tobacco Use Smoking Status: Current every day smoker Tobacco Use: Cigarettes Assessment/Plan All Active Problems (Last Reviewed 01/16/19 @ 14:[address] Arnie Terrell MD) Multinodular goiter (nontoxic) (Acute) Submandibular abscess (Acute) Hypokalemia (Acute) There is a 40-year-old female with history of thyroid nodule status post biopsy, benign pathology, tobacco use, dental caries is admitted with submandibular swelling, pain, tenderness, trismus and dysphagia 1. 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 No significant airway compromise. Patient not in respiratory distress. ENT consult done and discussed with Dr. Miner no pain in his right odontogenic infection with submental collection. 2 cm trismus. Recommended to continue IV antibiotic and 1 dose of 10 mg IV Decadron. Advised maxillofacial surgeon consult. I called and consulted Dr. Melvin and informed office about the patient. ID consult. Currently patient is on IV Zosyn and clindamycin. Flagyl discontinued. The patient does not have MRSA history 2. Elevated blood pressure: Most recent 123/18 but was 155/102 at admission. Monitor blood pressure. 3. Chronic tobacco use, poor dentition/dental caries 4. Obesity, GERD 5. DVT prophylaxis: Lovenox 40 mils subcu daily Total time of the visit including total time spent in counseling or coordination of care, (more than 50% of the total time, spent in obtaining medical information from nurses and other ancillary care providers), discussion with consultants ENT, maxillofacial surgeon and ID, review of labs and imaging is 35 minutes Clinical Impression(s) from Imaging Studies Soft Tissue Neck CT 04/15/20 23:02 IMPRESSION: 1. Organizing collection in the right mylohyoid muscle, highly suspicious for Herminio''s angina. Urgent ENT consultation is advised. Secondary findings are detailed above. Inpatient E&M: [id number] Subs Hosp L2
[2020-04-16] MEDS: dexAMETHasone 10 MG/ML Vial IV (09:42)
[2020-04-16] MEDS: Famotidine 20 MG Tablet PO ×2 (09:42→22:07)
[2020-04-16] MEDS: Enoxaparin 40 MG/0.4 ML Syringe SC (09:52)
--- NOTE | 2020-04-16 11:21 | CASEMGMT ---
MIKE [facility]CH assessment: Face to Face with patient for initial transition planning/care coordination assessment. RN MARCIN introduced self and role at [facility], pt voices understanding and consents to assessment at this time. Pt is sitting up in bed in no distress at this time. Pt is A/Ox4 at this time and answers all questions appropriately at this time. Care providers, pharmacy, and demographics verified/updated at this time. Presentation: Worsening swelling to neck, in ED for same day prior Admitting dx: Submandibular abscess PCP: [place] Specialists: Pt states no current specialists. Preferred [facility]acy: [facility] Insurance: [facility] Prescription Benefit: [facility] Living Will/HPOA: Pt states does not have LW/HPOA and declines AD info at this time. LNOK: Dewey Macario, sig other; Wendie Galicia, mother Living Arrangements: Pt states lives with sig other in 1 story apt and states no concerns at home at this time. Pt states is independent with ADL's. Transportation: Pt states drives self and states no transportation concerns at this time. DME/HHC: Pt states no current DME or need for any at this time. Pt states no hx of HHC or SNF in the past. Pt states no concerns with going home at time of discharge. Pt states is unemployed. Pt states smokes about 1pack/day of cigarettes and occasionally drinks ETOH. Pt states does request a list of in-network local dentist and this RN MARCIN provided at this time. Pt states no further questions/concerns/needs at this time. CM to follow for any further discharge planning/needs. Advised pt to ask for CM if any further questions/concerns/needs arise, voices understanding. Pt Goal: Home Plan[place]
--- NOTE | 2020-04-16 16:48 | PCM.CONS.GEN ---
Problem List (1) Submandibular abscess Status: Acute Reason for Consult Date of Consultation: 04/16/20 Reason for Consultation: SWELLING NECK FROM ODONTOGENIC SOURCES History of Present Illness: The patient is a 40 year old Female with known dental caries. Began having swelling pain stemming from right lower teeth approx 3-4 days ago. Came to ER on Tuesday and Pcn was given but continued to have swelling and pain. Now admitted for IV therapy. Past Medical History Past Medical History (Chronic Problems): Chronic Problems (Last Reviewed 04/16/20 @ 16:[address] Zoran Melvin DDS) Tobacco use (Chronic) Obesity (BMI 30-39.9) (Chronic) GERD (gastroesophageal reflux disease) (Chronic) Medical History: Medical History (Last Reviewed 04/16/20 @ 16:[address] Zoran Melvin DDS) Anxiety F41.9 History of back problems Thyroid nodule E04.1 Allergies prednisone Allergy (Severe, Verified 04/14/20 14:17) Angioedema ciprofloxacin [From Cipro] Adverse Reaction (Mild, Verified 04/14/20 14:17) Other ciprofloxacin HCl [From Cipro] Adverse Reaction (Mild, Verified 04/14/20 14:17) Other Home Medications: Ambulatory Orders Medication Instructions Recorded Ketorolac [Toradol] 10 mg PO Q6H PRN #20 tab 04/14/20 Penicillin V Potassium 500 mg PO 4X/DAY 04/16/20 Surgical History: Surgical History (Last Reviewed 01/16/19 @ 14:[address] Arnie Terrell MD) History of laparoscopic cholecystectomy Z90.49 History of tonsillectomy Z90.89 History of tympanoplasty of right ear Z98.890 Surgical History: - - Cholecystectomy, tonsillectomy, right ear surgery in her youth. 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 Vincent Fiorita, DDS) Submandibular abscess (Acute) Hypokalemia (Acute) - Physical Exam Vitals/I&O's: Vital Signs Temp Pulse Resp BP Pulse Ox 97.6 F L 85 16 123/71 H 95 04/16/20 11:15 04/16/20 14:00 04/16/20 11:15 04/16/20 11:15 04/16/20 11:15 Oxygen Delivery Method Room Air Weight: 107.1 kg Body Mass Index (BMI) 36.9 Intake and Output for Last 24 Hours 04/14/20 04/15/20 04/16/20 23:59 23:59 23:59 Intake Total 2413.33 / 2413.33 Balance 2413.33 / 2413.33 General: Alert, Oriented x3, Cooperative, No apparent distress HEENT: Atraumatic, PERRLA, EOMI Oral: Moist Mucosa, No Gingival or Mucosal Lesions/ Ulcerations - The teeth in general are in bad repair. There is some swelling right sublingual region. Patient able to protrude tongue and swallow. She feels as though she would like to try clears. Neck: Supple, Trachea Midline Psych/Mental Status: Normal Affect Laboratory Results 04/15/20 23:12: WBC 10.5, RBC 4.47, Hgb 13.3, Hct 40.7, MCV 91.1, MCH 29.8, MCHC 32.7, RDW Std Deviation 41.3, RDW Coeff of Mary 12.5, Plt Count 248, MPV 9.4, Immature Gran % (Auto) 0.400, Neut % (Auto) 73.2 H, Lymph % (Auto) 17.5 L, Union % (Auto) 8.6, Eos % (Auto) 0.1, Baso % (Auto) 0.2, Absolute Neuts (auto) 7.7, Absolute Lymphs (auto) 1.84, Nucleated RBC % 0 04/15/20 23:12: Sodium 140, Potassium 3.4 L, Chloride 106, Carbon Dioxide 26.0, Anion Gap 8, BUN 10, Creatinine 0.76, Estim Creat Clear Calc 93.77, Est GFR (MDRD) Af Amer 108, Est GFR (MDRD) Non-Af 89, BUN/Creatinine Ratio 13.2, Glucose 104, Calcium 8.7 04/15/20 23:12: Magnesium 2.0 04/16/20 01:20: COVID-19 ([place]) Not Detected 04/16/20 05:00: WBC 11.5 H, RBC 4.21, Hgb 12.6, Hct 37.7, MCV 89.5, MCH 29.9, MCHC 33.4, RDW Std Deviation 40.7, RDW Coeff of Mary 12.3, Plt Count 232, MPV 9.2, Immature Gran % (Auto) 0.400, Neut % (Auto) 78.8 H, Lymph % (Auto) 13.6 L, Union % (Auto) 7.0, Eos % (Auto) 0.0, Baso % (Auto) 0.2, Absolute Neuts (auto) 9.1 H, Absolute Lymphs (auto) 1.57, Nucleated RBC % 0 04/16/20 05:00: Sodium 139, Potassium 3.5, Chloride 108 H, Carbon Dioxide 23.0, Anion Gap 8, BUN 8, Creatinine 0.69, Estim Creat Clear Calc 103.29, Est GFR (MDRD) Af Amer 120, Est GFR (MDRD) Non-Af 99, BUN/Creatinine Ratio 11.6, Glucose 105, Calcium 8.0 L, Total Bilirubin 0.90, AST 58 H, ALT 53, Alkaline Phosphatase 119 H, Total Protein 7.1, Albumin 2.8 L, Globulin 4.3 H, Albumin/Globulin Ratio 0.7 L Current Medications Acetaminophen (Tylenol) 650 mg PO Q6H PRN PRN PRN Reason: Pain Score 1-10/Temp > 100.7 F Al Hydroxide/Mg Hydroxide (Mylanta Ii) 30 ml PO Q6H PRN PRN PRN Reason: Gastric Burning Albuterol Sulfate (Ventolin Aerosols) 2.5 mg INHALATION Q2H PRN PRN PRN Reason: Dyspnea, wheezing Dextrose (D50w Syringe) 0 gm IV X1 PRN; Protocol PRN Reason: Hypoglycemia Enoxaparin Sodium (Lovenox) 40 mg SC DAILY [facility] Last Admin: 04/16/20 09:52 Dose: 40 mg Documented by: Famotidine (Pepcid) 20 mg PO BID [facility] Last Admin: 04/16/20 09:42 Dose: 20 mg Documented by: Glucagon () 1 mg IM .X1 PRN PRN Reason: Hypoglycemia Guaifenesin (Robitussin) 20 ml PO Q4H PRN PRN PRN Reason: COUGH Hydralazine HCl (Apresoline Iv) 10 mg IV Q4H PRN PRN PRN Reason: SBP > 160 Sodium Chloride () 1,000 mls @ 125 mls/hr IV .Q8H [facility] Last Infusion: 04/16/20 15:28 Dose: 125 mls/hr Documented by: Ampicillin Sodium/Sulbactam (Sodium 3 gm/ Sodium Chloride) 112 mls @ 150 mls/hr IV Q6 [facility] Last Infusion: 04/16/20 11:51 Dose: Infused Documented by: Clindamycin Phosphate 600 mg/ (Dextrose) 54 mls @ 100 mls/hr IV Q8 [facility] Stop: 04/16/20 22:33 Last Infusion: 04/16/20 15:28 Dose: Infused Documented by: Ibuprofen (Motrin) 400 mg PO Q4H PRN PRN PRN Reason: Pain Score 1-10/Temp > 100.7 F Magnesium Hydroxide (Milk Of Magnesia) 30 ml PO DAILY PRN PRN PRN Reason: Constipation Melatonin (Melatonin) 3 mg PO QHS PRN PRN PRN Reason: INSOMNIA Morphine Sulfate () 4 mg IV Q3H PRN PRN PRN Reason: Pain Score 6-10/10 Last Admin: 04/16/20 05:44 Dose: 4 mg Documented by: Nicotine (Nicoderm Cq (Pbkc)) 21 mg TRANSDERM. DAILY [facility] Last Admin: 04/16/20 09:42 Dose: 21 mg Documented by: Ondansetron HCl (Zofran) 4 mg IV Q8H PRN PRN PRN Reason: NAUSEA/VOMITING Oxycodone HCl (Oxyir) 5 mg PO Q4H PRN PRN PRN Reason: Pain Score 4-5/10 Last Admin: 04/16/20 03:55 Dose: 5 mg Documented by: Prochlorperazine Edisylate (Compazine Iv) 5 mg IV Q4H PRN PRN PRN Reason: Breakthrough Nausea/Vomiting Psyllium Hydrophilic Mucilloid (Metamucil) 1 packet PO DAILY PRN PRN PRN Reason: Constipation Senna/Docusate Sodium (Senokot-S, Eneida-Colace) 2 tablet PO BID PRN PRN PRN Reason: Constipation Sodium Chloride () 10 - 40 ml IV UD PRN PRN Reason: SALINE FLUSH Throat Lozenges (Cepacol Sore Throat Lozenge) 1 lozenge MUCOUS MEM Q2H PRN PRN PRN Reason: SORE THROAT Assessment/Plan All Active Problems (Last Reviewed 04/16/20 @ 16:[address] Zoran Melvin, DDS) Multinodular goiter (nontoxic) (Acute) Submandibular abscess (Acute) Hypokalemia (Acute) She reports feeling somewhat better. She is opening her mouth greater than 20 mm of opening and she is handling her own secretions well. She would like to try clears such as jello and juice. I see no airway embarassment. I would continue present management and see how she is progressing in the next 24 hours. She will hopefully require no surgical drainage but will need to have her dentist remove the necessary teeth at some point.
--- NOTE | 2020-04-16 16:55 | CON.PCM_ITS ---
Reason for Consult: orin's Consulted by: Dr. Whitney History of Present Illness: The patient is a 40 year old F with h/o DM, presented to ED with several days of trismus, pain in jaw, swelling, redness, and not feeling well. Had some oral pain/swelling recently, saw a dentist about 3 weeks ago, given 1 week of amoxicillin with improvement in sx temporarily. Now admitted on clinda/unasyn, feeling slightly better. No sick contacts. No cough/SOB/chest pain. Full ROS Performed and neg except as noted above. - Medical History Past Medical History (Chronic Problems): Chronic Problems (Last Reviewed 04/16/20 @ 16:[address] Zoran Melvin, DDS) Tobacco use (Chronic) Obesity (BMI 30-39.9) (Chronic) GERD (gastroesophageal reflux disease) (Chronic) Allergies/Adverse Reactions: Allergies prednisone Allergy (Severe, Verified 04/14/20 14:17) Angioedema ciprofloxacin [From Cipro] Adverse Reaction (Mild, Verified 04/14/20 14:17) Other ciprofloxacin HCl [From Cipro] Adverse Reaction (Mild, Verified 04/14/20 14:17) Other Home Medications: Ambulatory Orders Medication Instructions Recorded Ketorolac [Toradol] 10 mg PO Q6H PRN #20 tab 04/14/20 Penicillin V Potassium 500 mg PO 4X/DAY 04/16/20 - Social History Tobacco Use: cigarettes Vital Signs Temp Pulse Resp BP Pulse Ox 97.6 F L 85 16 123/71 H 95 04/16/20 11:15 04/16/20 14:00 04/16/20 11:15 04/16/20 11:15 04/16/20 11:15 Oxygen Delivery Method Room Air Weight: 107.1 kg Body Mass Index (BMI) 36.9 Laboratory Tests Past 24 Hrs 04/15/20 04/15/20 04/15/20 23:12 23:12 23:12 WBC 10.5 RBC 4.47 Hgb 13.3 Hct 40.7 MCV 91.1 MCH 29.8 MCHC 32.7 RDW Std Deviation 41.3 RDW Coeff of Mary 12.5 Plt Count 248 MPV 9.4 Immature Gran % (Auto) 0.400 Neut % (Auto) 73.2 H Lymph % (Auto) 17.5 L [place] % (Auto) 8.6 Eos % (Auto) 0.1 Baso % (Auto) 0.2 Absolute Neuts (auto) 7.7 Absolute Lymphs (auto) 1.84 Nucleated RBC % 0 Sodium 140 Potassium 3.4 L Chloride 106 Carbon Dioxide 26.0 Anion Gap 8 BUN 10 Creatinine 0.76 Estim Creat Clear Calc 93.77 Est GFR (MDRD) Af Amer 108 Est GFR (MDRD) Non-Af 89 BUN/Creatinine Ratio 13.2 Glucose 104 Calcium 8.7 Magnesium 2.0 Total Bilirubin AST ALT Alkaline Phosphatase Total Protein Albumin Globulin Albumin/Globulin Ratio COVID-19 ([place]) 04/16/20 04/16/20 04/16/20 01:20 05:00 05:00 WBC 11.5 H RBC 4.21 Hgb 12.6 Hct 37.7 MCV 89.5 MCH 29.9 MCHC 33.4 RDW Std Deviation 40.7 RDW Coeff of Mary 12.3 Plt Count 232 MPV 9.2 Immature Gran % (Auto) 0.400 Neut % (Auto) 78.8 H Lymph % (Auto) 13.6 L [place] % (Auto) 7.0 Eos % (Auto) 0.0 Baso % (Auto) 0.2 Absolute Neuts (auto) 9.1 H Absolute Lymphs (auto) 1.57 Nucleated RBC % 0 Sodium 139 Potassium 3.5 Chloride 108 H Carbon Dioxide 23.0 Anion Gap 8 BUN 8 Creatinine 0.69 Estim Creat Clear Calc 103.29 Est GFR (MDRD) Af Amer 120 Est GFR (MDRD) Non-Af 99 BUN/Creatinine Ratio 11.6 Glucose 105 Calcium 8.0 L Magnesium Total Bilirubin 0.90 AST 58 H ALT 53 Alkaline Phosphatase 119 H Total Protein 7.1 Albumin 2.8 L Globulin 4.3 H Albumin/Globulin Ratio 0.7 L COVID-19 ([place]) Not Detected - Other Studies Radiology: [] reviewed Other Studies: [] Route of nutrition/ use of supplements: [] Nutritional Intake: [] IV Site: [] Mehta Catheter: [] - Physical Exam General: Alert, Oriented x3, Cooperative, No apparent distress HEENT: Atraumatic, PERRLA, EOMI, - - poor dentition Neck: - - large anterior induration, tenderness Lungs: Clear to auscultation, Normal air movement Cardiovascular: Regular rate, Regular Rhythm Abdomen: Soft, Non Tender, Non-Distended Extremities: No edema Skin: No rashes IV Site: Peripheral, without redness Musculoskeletal: No Tenderness to Palpation of Joints or Extremities Neurological: Cranial nerves II-XII grossly intact - Assessment/Plan Antibiotics: [] Assessment/Plan: [] Active and Suspected Problems (Last Reviewed 04/16/20 @ 16:[address] Zoran Melvin, DDS) Submandibular abscess (Acute) Hypokalemia (Acute) Cont clinda/unasyn for now. OMFS consulted for I&D. COVID neg here. Will check bcx. Will follow, thank you.
[2020-04-17] VITALS (9 sets, daily range): BP systolic 118–160; BP diastolic 66–99; PULSE 57–78; RESP 16; TEMP 36.5–36.6; O2SAT 92–96
[2020-04-17 05:26] LABS: Absolute Neutrophil Count 9.7 X10^3/uL (2.0-7.7); Basophil# 0.01 X10^3/uL; Basophil% 0.1 % (0-1); Hematocrit 35.1 % (37-47); Hemoglobin 11.8 g/dL (12.0-15.0); Lymphocyte % 8.8 % (19-41); Mean Corp Hgb Conc 33.6 g/dL (32-36); Mean Corpuscular Hgb 30.2 pg (27.0-32.0); Mean Corpuscular Volume 89.8 fL (81-99); Mean Platelet Vol. 9.2 fl (6.2-12.0); Monocyte# 0.63 X10^3/uL; Monocyte% 5.5 % (0-10); NRBC Flagged by Analyzer 0 % (0-5); Platelet Count 241 K/mm3 (150-450); RBC Distribution Width CV 12.6 % (11.6-14.6); Red Blood Count 3.91 M/mm3 (4.2-5.4); White Blood Count 11.4 K/mm3 (4.4-11.0)
[2020-04-17 06:03] LABS: Anion Gap 8 (5-15); BUN 7 mg/dL (7-18); BUN/Creat Ratio 12.3 RATIO (10-20); Calcium,Total 8.4 mg/dL (8.5-10.1); Chloride 111 mmol/L (98-107); Creatinine, Serum 0.57 mg/dL (0.55-1.02); EST Glomerular Filtration Rate 124 mL/min (>60); Est Glom Filt Rate - Afr Amer 150 mL/min (>60); Estimated Creatinine Clearance 125.03 ml/min; Glucose 124 mg/dL (74-106); Potassium 3.6 mmol/L (3.5-5.1); Sodium Level 141 mmol/L (136-145)
[2020-04-17] MEDS: 0.9% Normal Saline 1,000 ML 125 ML IV (07:18)
[2020-04-17] MEDS: Clindamycin HCl 150 MG Capsule 300 MG PO (08:37)
[2020-04-17] MEDS: Enoxaparin 40 MG/0.4 ML Syringe SC (08:37)
[2020-04-17] MEDS: Famotidine 20 MG Tablet PO (08:38)
--- NOTE | 2020-04-17 09:37 | PCM.DC ---
- Discharge Diagnoses Current Active Problems: Current Active and Chronic Problems (Last Reviewed 04/16/20 @ 16:[address] Zoran Melvin DDS) Submandibular abscess (Acute) Tobacco use (Chronic) Hypokalemia (Acute) Obesity (BMI 30-39.9) (Chronic) GERD (gastroesophageal reflux disease) (Chronic) You will use the following diet at home:: Cardiac Discharge Activity: May Not Drive Call your doctor if you observe: Fever of 101 or Higher, Coldness, Increased Pain, Change in Color, Inability to urinate, Inability to have a bowel movement, Shortness of breath, Dizziness, Swelling in the ankles, Chest pain Additional Instructions: Dentist in 1 week Allergies/Adverse Reactions: Allergies prednisone Allergy (Severe, Verified 04/14/20 14:17) Angioedema ciprofloxacin [From Cipro] Adverse Reaction (Mild, Verified 04/14/20 14:17) Other ciprofloxacin HCl [From Cipro] Adverse Reaction (Mild, Verified 04/14/20 14:17) Other Medications to take at Discharge Ketorolac [Toradol] 10 mg PO Q6H PRN #20 tab 04/14/20 Amoxicillin/Potassium Clav [Augmentin 875-125 Tablet] 1 ea PO BID #20 tab 04/17/20 Ibuprofen [Motrin] 400 mg PO Q4H PRN PRN tab 04/17/20 Lactobacillus Acidophilus [Acidophilus] 1 tab PO BID #20 tab 04/17/20 Lisinopril [Zestril] 5 mg PO DAILY #30 tab 04/17/20 Nicotine [Nicoderm Cq] 21 mg TRANSDERM. DAILY #30 patch 04/17/20 The following prescriptions were given: Lactobacillus Acidophilus [Acidophilus] 1 tab PO BID #20 tab Transmission Status: Received by [facility] #30 Amoxicillin/Potassium Clav [Augmentin 875-125 Tablet] 1 ea PO BID #20 tab Transmission Status: Received by [facility] Nicotine [Nicoderm Cq] 21 mg TRANSDERM. DAILY #30 patch Transmission Status: Received by [facility]30 Lisinopril [Zestril] 5 mg PO DAILY #30 tab Transmission Status: Received by [facility] #30 Primary Care Physician: Cyrus Barahona MD [Primary Care Provider] - Please follow up with your Primary Care Physician in: IN 1-2 WEEK Test Results: Test results from this visit will be discussed in further detail at your follow-up appointment, if applicable. Please Follow Up With: Shubham Bridges MD When: IN 2 weeks for submandibular swelling
--- NOTE | 2020-04-17 09:42 | DS.PCM_ITS ---
Discharge Date and Diagnosis - Problem List Patient Problems: Active and Suspected Problems (Last Reviewed 04/16/20 @ 16:[address] Zoran Melvin DDS) Submandibular abscess (Acute) Hypokalemia (Acute) Date of Admission: 04/16/20 Date of Discharge: 04/17/20 - Primary Discharge Diagnosis Acute Problems: Active Problems (Last Reviewed 04/16/20 @ 16:[address] Zoran Melvin DDS) Submandibular abscess (Acute) Hypokalemia (Acute) - Secondary Discharge Diagnosis Chronic Problems: Chronic Problems (Last Reviewed 04/16/20 @ 16:[address] Zoran Melvin DDS) Tobacco use (Chronic) Obesity (BMI 30-39.9) (Chronic) GERD (gastroesophageal reflux disease) (Chronic) Hospital Course and Treatment Summary of Care Provided: [] There is a 40-year-old female with history of thyroid nodule status post biopsy, benign pathology, tobacco use, dental caries is admitted with submandibular swelling, pain, tenderness, trismus and dysphagia 1. 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 No significant airway compromise. Patient not in respiratory distress. ENT consult done and discussed with Dr. Miner no pain in his right odontogenic infection with submental collection. Trismus has improved. Patient was treated with IV antibiotic Zosyn and c lindamycin and 1 dose of 10 mg IV Decadron. Patient was also [place] [facility] [place] Melvin and recommended follow-up with the dentist. The patient does not have MRSA history. ID recommended Augmentin for 10 days for discharge. Follow-up with dentist as an outpatient. 2. Hypertension: Most recent 123/18 but was 155/102 at admission. Patient blood pressure was elevated in most of the BP readings. Discharged on lisinopril 5 mg daily and follow with PCP to titrate upwards. 3. Chronic tobacco use, poor dentition/dental caries 4. Obesity, GERD 5. DVT prophylaxis: Lovenox 40 mils subcu daily Discharge medication reconciliation done. Discharge follow-up instructions completed. Discharge process discussed with the patient and all questions were answered to patient's satisfaction. Total time spent, exact 35 minutes on discharge meds reconciliation, examination, coordination of care with nurses and ancillary staff, review of imaging and blood test and discussion with the patient on follow-up instructions Clinical Impression(s) from Imaging Studies Soft Tissue Neck CT 04/15/20 23:02 IMPRESSION: 1. Organizing collection in the right mylohyoid muscle, highly suspicious for Herminio''s angina. Urgent ENT consultation is advised. Secondary findings are detailed above. Patient Problems: Active and Suspected Problems (Last Reviewed 04/16/20 @ 16:[address] Zoran Melvin, DDS) Submandibular abscess (Acute) Hypokalemia (Acute) Objective: Seen and examined. No fever or chills. No tachycardia, tachypnea or hypoxia. WBC count 11,000. No increase. General: Alert, Oriented x3, Cooperative HEENT: Atraumatic, PERRLA, EOMI, Normocephalic, no mastoid process tenderness. Patient has history of tubes in the past Neck: Supple, No JVD, Negative Carotid Bruits, decrease in submandibular region swelling. On per oral exam there is tenderness over floor of the mouth with swelling. Trismus has improved and patient can open mouth and swallow better. Tolerated soft diet. Lungs: Clear to auscultation, Normal air movement, No rhonchi, No wheeze, No rales Cardiovascular: Regular rate, Regular Rhythm, Normal S1, Normal S2, No murmurs Abdomen: Bowel Sounds Present, Soft, Non Tender Extremities: No edema, Capillary Refill Less than 3 Seconds Skin: Rash Present - Mild erythema tenderness present over swelling Musculoskeletal: No Tenderness to Palpation of Joints or Extremities Neurological: Cranial nerves II-XII grossly intact, Deep Tendon Reflexes 2+/4 and Symmetrical, Neuro grossly intact Psych/Mental Status: Normal Affect, Appropriate - Physical Exam Vitals/I&O's: Vital Signs Temp Pulse Resp BP Pulse Ox 98 F 71 16 150/89 H 92 04/17/20 08:35 04/17/20 08:35 04/17/20 08:35 04/17/20 08:35 04/17/20 08:35 Oxygen Delivery Method Room Air Weight: 236 lb 1.841 oz Body Mass Index (BMI) 36.9 Intake and Output for Last 24 Hours 04/15/20 04/16/20 04/17/20 23:59 23:59 23:59 Intake Total 3323.08 / 3563.08 1704.00 / 1704.00 Balance 3323.08 / 3563.08 1704.00 / 1704.00 Laboratory Results 04/17/20 05:07: WBC 11.4 H, RBC 3.91 L, Hgb 11.8 L, Hct 35.1 L, MCV 89.8, MCH 30.2, MCHC 33.6, RDW Std Deviation 41.0, RDW Coeff of Mary 12.6, Plt Count 241, MPV 9.2, Immature Gran % (Auto) 0.600, Neut % (Auto) 85.0 H, Lymph % (Auto) 8.8 L, [place] % (Auto) 5.5, Eos % (Auto) 0.0, Baso % (Auto) 0.1, Absolute Neuts (auto) 9.7 H, Absolute Lymphs (auto) 1.00, Nucleated RBC % 0 04/17/20 05:07: Sodium 141, Potassium 3.6, Chloride 111 H, Carbon Dioxide 22.0, Anion Gap 8, BUN 7, Creatinine 0.57, Estim Creat Clear Calc 125.03, Est GFR (M DRD) Af Amer 150, Est GFR (MDRD) Non-Af 124, BUN/Creatinine Ratio 12.3, Glucose 124 H, Calcium 8.4 L Current Medications Acetaminophen (Tylenol) 650 mg PO Q6H PRN PRN PRN Reason: Pain Score 1-10/Temp > 100.7 F Al Hydroxide/Mg Hydroxide (Mylanta Ii) 30 ml PO Q6H PRN PRN PRN Reason: Gastric Burning Albuterol Sulfate (Ventolin Aerosols) 2.5 mg INHALATION Q2H PRN PRN PRN Reason: Dyspnea, wheezing Dextrose (D50w Syringe) 0 gm IV X1 PRN; Protocol PRN Reason: Hypoglycemia Enoxaparin Sodium (Lovenox) 40 mg SC DAILY [facility] Last Admin: 04/17/20 08:37 Dose: 40 mg Documented by: Famotidine (Pepcid) 20 mg PO BID [facility] Last Admin: 04/17/20 08:38 Dose: 20 mg Documented by: Glucagon () 1 mg IM .X1 PRN PRN Reason: Hypoglycemia Guaifenesin (Robitussin) 20 ml PO Q4H PRN PRN PRN Reason: COUGH Hydralazine HCl (Apresoline Iv) 10 mg IV Q4H PRN PRN PRN Reason: SBP > 160 Sodium Chloride () 1,000 mls @ 125 mls/hr IV .Q8H [facility] Last Admin: 04/17/20 07:18 Dose: 125 mls/hr Documented by: Ampicillin Sodium/Sulbactam (Sodium 3 gm/ Sodium Chloride) 112 mls @ 150 mls/hr IV Q6 [facility] Last Infusion: 04/17/20 06:33 Dose: Infused Documented by: Ibuprofen (Motrin) 400 mg PO Q4H PRN PRN PRN Reason: Pain Score 1-10/Temp > 100.7 F Lactobacillus Acidophilus (Acidophilus) 1 tablet PO BID [facility] Last Admin: 04/17/20 08:37 Dose: 1 tablet Documented by: Lisinopril (Zestril) 10 mg PO DAILY [facility] Magnesium Hydroxide (Milk Of Magnesia) 30 ml PO DAILY PRN PRN PRN Reason: Constipation Melatonin (Melatonin) 3 mg PO QHS PRN PRN PRN Reason: INSOMNIA Morphine Sulfate () 4 mg IV Q3H PRN PRN PRN Reason: Pain Score 6-10/10 Last Admin: 04/16/20 05:44 Dose: 4 mg Documented by: Nicotine (Nicoderm Cq (Pbkc)) 21 mg TRANSDERM. DAILY [facility] Last Admin: 04/17/20 08:38 Dose: 21 mg Documented by: Ondansetron HCl (Zofran) 4 mg IV Q8H PRN PRN PRN Reason: NAUSEA/VOMITING Oxycodone HCl (Oxyir) 5 mg PO Q4H PRN PRN PRN Reason: Pain Score 4-5/10 Last Admin: 04/16/20 03:55 Dose: 5 mg Documented by: Potassium Chloride (K-Dur) 40 meq PO Q3H [facility] Stop: 04/17/20 11:01 Last Admin: 04/17/20 08:37 Dose: 40 meq Documented by: Prochlorperazine Edisylate (Compazine Iv) 5 mg IV Q4H PRN PRN PRN Reason: Breakthrough Nausea/Vomiting Psyllium Hydrophilic Mucilloid (Metamucil) 1 packet PO DAILY PRN PRN PRN Reason: Constipation Senna/Docusate Sodium (Senokot-S, Eneida-Colace) 2 tablet PO BID PRN PRN PRN Reason: Constipation Sodium Chloride () 10 - 40 ml IV UD PRN PRN Reason: SALINE FLUSH Throat Lozenges (Cepacol Sore Throat Lozenge) 1 lozenge MUCOUS MEM Q2H PRN PRN PRN Reason: SORE THROAT Discharge Activity: May Not Drive Call your doctor if you observe: Fever of 101 or Higher, Coldness, Increased Pain, Change in Color, Inability to urinate, Inability to have a bowel movement, Shortness of breath, Dizziness, Swelling in the ankles, Chest pain Home Medications: Medications to take at Discharge Ketorolac [Toradol] 10 mg PO Q6H PRN #20 tab 04/14/20 Amoxicillin/Potassium Clav [Augmentin 875-125 Tablet] 1 ea PO BID #20 tab 0 04/17/20 Ibuprofen [Motrin] 400 mg PO Q4H PRN PRN tab 04/17/20 Lactobacillus Acidophilus [Acidophilus] 1 tab PO BID #20 tab 04/17/20 Lisinopril [Zestril] 5 mg PO DAILY #30 tab 04/17/20 Nicotine [Nicoderm Cq] 21 mg TRANSDERM. DAILY #30 patch 04/17/20 Following Prescrptions Were Given to Patient: Lactobacillus Acidophilus [Acidophilus] 1 tab PO BID #20 tab Transmission Status: Received by [facility]30 Amoxicillin/Potassium Clav [Augmentin 875-125 Tablet] 1 ea PO BID #20 tab Transmission Status: Received by [facility] Nicotine [Nicoderm Cq] 21 mg TRANSDERM. DAILY #30 patch Transmission Status: Received by [facility] #30 Lisinopril [Zestril] 5 mg PO DAILY #30 tab Transmission Status: Received by [facility]30 Primary Care Physician: Cyrus Barahona MD [Primary Care Provider] - Please follow up with your Primary Care Physician in: IN 1-2 WEEK Please Follow Up With: Shubham Bridges MD When: IN 2 weeks for submandibular swelling Medical Necessity - Tobacco Use Smoking Status: Current every day smoker Tobacco Use: Cigarettes Meaningful Use Info Meaningful Use Diagnoses (Choose all that apply): None applicable Inpatient E&M: 018[facility]
--- NOTE | 2020-04-17 10:16 | PN.ID_ITS ---
Patient Problems: Active and Suspected Problems (Last Reviewed 04/16/20 @ 16:[address] Zoran Melvin, CHRISTINE) Submandibular abscess (Acute) Hypokalemia (Acute) Subjective: Feeling ok, no fever, still some soreness in jaw. - Physical Exam Vitals/I&O's: Vital Signs Temp Pulse Resp BP Pulse Ox 98 F 71 16 150/89 H 92 04/17/20 08:35 04/17/20 08:35 04/17/20 08:35 04/17/20 08:35 04/17/20 08:35 Oxygen Delivery Method Room Air Weight: 107.1 kg Body Mass Index (BMI) 36.9 Intake and Output for Last 24 Hours 04/15/20 04/16/20 04/17/20 23:59 23:59 23:59 Intake Total 3323.08 / 3563.08 1704.00 / 1704.00 Balance 3323.08 / 3563.08 1704.00 / 1704.00 General: Alert, Cooperative, No apparent distress Lungs: Clear to auscultation, Normal air movement Cardiovascular: Regular rate, Regular Rhythm Abdomen: Soft, Non Tender, Non-Distended Skin: No rashes Laboratory Results 04/17/20 05:07: WBC 11.4 H, RBC 3.91 L, Hgb 11.8 L, Hct 35.1 L, MCV 89.8, MCH 30.2, MCHC 33.6, RDW Std Deviation 41.0, RDW Coeff of Mary 12.6, Plt Count 241, MPV 9.2, Immature Gran % (Auto) 0.600, Neut % (Auto) 85.0 H, Lymph % (Auto) 8.8 L, Grainger % (Auto) 5.5, Eos % (Auto) 0.0, Baso % (Auto) 0.1, Absolute Neuts (auto) 9.7 H, Absolute Lymphs (auto) 1.00, Nucleated RBC % 0 04/17/20 05:07: Sodium 141, Potassium 3.6, Chloride 111 H, Carbon Dioxide 22.0, Anion Gap 8, BUN 7, Creatinine 0.57, Estim Creat Clear Calc 125.03, Est GFR (MDRD) Af Amer 150, Est GFR (MDRD) Non-Af 124, BUN/Creatinine Ratio 12.3, Glucose 124 H, Calcium 8.4 L Current Medications Acetaminophen (Tylenol) 650 mg PO Q6H PRN PRN PRN Reason: Pain Score 1-10/Temp > 100.7 F Al Hydroxide/Mg Hydroxide (Mylanta Ii) 30 ml PO Q6H PRN PRN PRN Reason: Gastric Burning Albuterol Sulfate (Ventolin Aerosols) 2.5 mg INHALATION Q2H PRN PRN PRN Reason: Dyspnea, wheezing Dextrose (D50w Syringe) 0 gm IV X1 PRN; Protocol PRN Reason: Hypoglycemia Enoxaparin Sodium (Lovenox) 40 mg SC DAILY [facility] Last Admin: 04/17/20 08:37 Dose: 40 mg Documented by: Famotidine (Pepcid) 20 mg PO BID [facility] Last Admin: 04/17/20 08:38 Dose: 20 mg Documented by: Glucagon () 1 mg IM .X1 PRN PRN Reason: Hypoglycemia Guaifenesin (Robitussin) 20 ml PO Q4H PRN PRN PRN Reason: COUGH Hydralazine HCl (Apresoline Iv) 10 mg IV Q4H PRN PRN PRN Reason: SBP > 160 Sodium Chloride () 1,000 mls @ 125 mls/hr IV .Q8H [facility] Last Admin: 04/17/20 07:18 Dose: 125 mls/hr Documented by: Ampicillin Sodium/Sulbactam (Sodium 3 gm/ Sodium Chloride) 112 mls @ 150 mls/hr IV Q6 [facility] Last Infusion: 04/17/20 06:33 Dose: Infused Documented by: Ibuprofen (Motrin) 400 mg PO Q4H PRN PRN PRN Reason: Pain Score 1-10/Temp > 100.7 F Lactobacillus Acidophilus (Acidophilus) 1 tablet PO BID [facility] Last Admin: 04/17/20 08:37 Dose: 1 tablet Documented by: Lisinopril (Zestril) 10 mg PO DAILY [facility] Magnesium Hydroxide (Milk Of Magnesia) 30 ml PO DAILY PRN PRN PRN Reason: Constipation Melatonin (Melatonin) 3 mg PO QHS PRN PRN PRN Reason: INSOMNIA Morphine Sulfate () 4 mg IV Q3H PRN PRN PRN Reason: Pain Score 6-10/10 Last Admin: 04/16/20 05:44 Dose: 4 mg Documented by: Nicotine (Nicoderm Cq (Pbkc)) 21 mg TRANSDERM. DAILY [facility] Last Admin: 04/17/20 08:38 Dose: 21 mg Documented by: Ondansetron HCl (Zofran) 4 mg IV Q8H PRN PRN PRN Reason: NAUSEA/VOMITING Oxycodone HCl (Oxyir) 5 mg PO Q4H PRN PRN PRN Reason: Pain Score 4-5/10 Last Admin: 04/16/20 03:55 Dose: 5 mg Documented by: Potassium Chloride (K-Dur) 40 meq PO Q3H [facility] Stop: 04/17/20 11:01 Last Admin: 04/17/20 08:37 Dose: 40 meq Documented by: Prochlorperazine Edisylate (Compazine Iv) 5 mg IV Q4H PRN PRN PRN Reason: Breakthrough Nausea/Vomiting Psyllium Hydrophilic Mucilloid (Metamucil) 1 packet PO DAILY PRN PRN PRN Reason: Constipation Senna/Docusate Sodium (Senokot-S, Eneida-Colace) 2 tablet PO BID PRN PRN PRN Reason: Constipation Sodium Chloride () 10 - 40 ml IV UD PRN PRN Reason: SALINE FLUSH Throat Lozenges (Cepacol Sore Throat Lozenge) 1 lozenge MUCOUS MEM Q2H PRN PRN PRN Reason: SORE THROAT Medical Necessity - Tobacco Use Smoking Status: Current every day smoker Tobacco Use: Cigarettes Route of nutrition/ use of supplements: [] Nutritional Intake: [] IV Site: [] Mehta Catheter: [] - Assessment/Plan Antibiotics: [] Assessment/Plan: [] Active and Suspected Problems (Last Reviewed 04/16/20 @ 16:[address] Zoran Melvin, DDS) Submandibular abscess (Acute) Hypokalemia (Acute) Cont unasyn for now. OMFS consulted for I&D, recommended outpt extraction by dentistry. COVID neg here. Ok for d/c home on augmentin for 10 days with dentist visit as soon as possible. Will follow
--- NOTE | 2020-04-17 10:24 | PHA.DC.MC ---
Pharmacy Service has performed discharge medication reconciliation and counseling for this patient. The patient's discharge medication list was reviewed for discrepancies and discrepancies were resolved. The patient was counseled on the following discharge medications and changes in medications for homegoing were reviewed. 1. AUGMENTIN 2. ACIDOPHILLUS The Reason for Use, instructions for use, and potential side effects were reviewed for all new medications. The patient's questions regarding all of their medications were answered. The patient was able to verbally demonstrate an understanding of their discharge medications. Home Medications Ketorolac [Toradol] 10 mg PO Q6H PRN #20 tab 04/14/20 Amoxicillin/Potassium Clav [Augmentin 875-125 Tablet] 1 ea PO BID #20 tab 04/17/20 Ibuprofen [Motrin] 400 mg PO Q4H PRN PRN tab 04/17/20 Lactobacillus Acidophilus [Acidophilus] 1 tab PO BID #20 tab 04/17/20 Lisinopril [Zestril] 5 mg PO DAILY #30 tab 04/17/20 Nicotine [Nicoderm Cq] 21 mg TRANSDERM. DAILY #30 patch 04/17/20
[2020-04-17] MEDS: Lisinopril 10 MG Tablet PO (10:57)
[2020-04-17] MEDS: oxyCODONE 5 MG Tablet PO (12:37)
[2020-04-17] MEDS: Ibuprofen 400 MG Tablet PO (14:35)
--- NOTE | 2020-04-18 14:55 | CASEMGMT ---
MIKE BURCH Discharge Follow-Up Phone Call. Lacosmani: Gracie Strata: 3 Discharge Date: 04/17/20 Adm Dx: Submandibular Abscess Call to pt to inquire about how she has been doing since being discharged from the hospital. Pt stated she is still having some pain from the abscess, but that she is taking the Toradol as needed and Tylenol in between at times as well for break-through pain. 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 She states she has made an appt with Dr Barahona for Tuesday next week and is still working on finding a dentist in network with her insurance. She states most of the local dentists are not taking new patients and so she is looking into some that are further distance and states, I'll just have to find a ride but that she is working on it. She denies having any questions or needs at this time. MIKE BURCH thanked pt for choosing [facility] Krunal MCLEOD RN, CM
== END 2020-04-17 16:24 | disposition home or self-care (01) | DRG 115 ==
LOC: ED 04-16 00:20 → PCU 04-16 02:25
PROVIDERS: Admitting Provider Family Medicine; Emergency Provider Emergency Medicine; PCP Family Medicine; Visit Provider Internal Medicine
DX: K12.2 Cellulitis and abscess of mouth (principal); E87.6 Hypokalemia; K04.7 Periapical abscess without sinus; E66.9 Obesity, unspecified; K21.9 Gastro-esophageal reflux disease without esophagitis; F17.210 Nicotine dependence, cigarettes, uncomplicated; Z68.36 Body mass index [BMI] 36.0-36.9, adult; K02.9 Dental caries, unspecified; E04.2 Nontoxic multinodular goiter; E11.9 Type 2 diabetes mellitus without complications; I10 Essential (primary) hypertension
CPT/HCPCS: 36415; 70491; 80048; 80053; 83735; 85025; 87040; 87635; 94799; 96365; 96375; 99251; 99283; 99284; 99406; J7030; J7050; Q9967; A4216; G0463; J0295; J2405; J3490; U0003

== ENCOUNTER 2021-02-27 09:56 | Emergency (ER) | payer MEDICAID, SELFPAY ==
[2020-04-16 02:16] VITALS: BMI 36.9
[2021-02-27 09:57] VITALS: BP 147/99; PULSE 103; RESP 16; TEMP 35.5; O2SAT 95; BMI 33.6
[2021-02-27 10:06] VITALS: BP 147/99; PULSE 103; RESP 18; TEMP 35.5; O2SAT 98
[2021-02-27] MEDS: Lidocaine 1% /Epi 1:100 (20ml) 20 ML Vial INFILT (10:17)
--- NOTE | 2021-02-27 10:20 | ED.VIS.GEN ---
History of Present Illness Chief Complaint: Abscess Informant: Patient Onset: Yesterday Context: Gradual Onset Timing: Continuous Current Severity: Moderate Maximum Severity: Moderate Narrative: Patient is a 41-year-old female is otherwise healthy on no daily medications who presents to the emergency department abscess. Patient states she had a red area in her groin that she noticed yesterday. Overnight throughout the day, the areas got more swollen and fluctuant. She denies any fevers or chills. She is not a diabetic. She is otherwise been in her normal state of health. She denies any history of prior MRSA. Prior similar symptoms: No Recent Illness/Hospitalization: No Past Medical History - Allergies and Home Meds Allergies/Adverse Reactions: Allergies prednisone Allergy (Severe, Verified 02/27/21 09:57) Angioedema ciprofloxacin [From Cipro] Adverse Reaction (Mild, Verified 02/27/21 09:57) Other ciprofloxacin HCl [From Cipro] Adverse Reaction (Mild, Verified 02/27/21 09:57) Other Primary Care Physician: Cyrus Barahona MD [Primary Care Provider] - Prior records reviewed: Yes Past Medical History: None Surgical History: - - Cholecystectomy, tonsillectomy, right ear surgery in her youth. Smoking Status: Current every day smoker - Family History Paternal Family History: Reports: Diabetes, High Cholesterol, Heart Disease, Hypertension, Renal Disease Maternal Family History: Reports: Diabetes, High Cholesterol, Heart Disease, Hypertension, Renal Disease Review of Systems General: Denies: Chills, Fever, Sweats Eyes: Denies: Visual changes - bilaterally, Diplopia ENT: Denies: Rhinorrhea, Sore throat Cardiovascular: Denies: Chest pain, Palpitations Respiratory: Denies: Dyspnea, Cough, Dyspnea on exertion Gastrointestinal: Denies: Abdominal pain, Nausea, Vomiting, Diarrhea, Melena, Hematochezia Genitourinary: Denies: Dysuria, Hematuria, Frequency Musculoskeletal: Denies: Back pain, Extremity Pain Skin: Reports: Abscess. Denies: Rash, Wounds Neurological: Denies: Headache, Weakness, Numbness Physical Exam Vital Signs/Narrative: Vital Signs Temp Pulse Resp BP Pulse Ox 02/27/21 10:06 96 F L 103 H 18 147/99 H 98 02/27/21 09:57 96 F L 103 H 16 147/99 H 95 Inital Vital Signs reviewed: Yes General: Well nourished, Well developed, No Acute Distress Head: Normocephalic, Atraumatic Eyes: Perrl, EOMI ENT: Moist mucous membranes, No rhinorrhea Neck: Supple, Nontender Cardiovascular: Regular rate, Regular rhythm, No murmurs Respiratory: No distress, CTA bilaterally, Chest nontender Abdomen: Soft, Nontender, Nondistended, Normal bowel sounds Back: Nontender, Normal Inspection Extremities: Nontender, No edema Skin: - - Patient is 3 cm ovoid abscess in the right inguinal crease. There is mild surrounding cellulitis. There is no tracking or evidence of Yajaira's. Neurological: Alert, Oriented x3, Cranial nerves II-XII grossly intact, Normal Strength, Normal Sensation Psychological: Normal affect, Normal Mood Diagnostic/Tx/Re-eval - Medical Decision Making Patient presents with right inguinal abscess. She was examined with female nurse production assembly supervisor. The patient was consented for incision and drainage. The area was cleaned with chlorhexidine. Is injected with 4 cc of 1% lidocaine with epinephrine. The area was incised with an 11 blade. Loculations were broken up with hemostats. Significant purulence was able to be expressed. The patient tolerated this well. I am going to place her on Bactrim given the surrounding cellulitis. I do want her to follow-up in 48 hours for wound reevaluation and return if she is not improving. She is comfortable with this plan of care. Impression 1. Right inguinal abscess 2. Incision and drainage ED Disposition - Plan for ED Patient: Instructions: ED Abscess Incision And Drainage Prescriptions: Smz/Tmp Ds [Bactrim Ds] 1 tablet PO BID #14 tab Prescription Printed Referrals: Cyrus Barahona MD [Primary Care Provider] -
[2021-02-27 10:28] VITALS: RESP 18
== END 2021-02-27 10:53 | disposition home or self-care (01) ==
LOC: ED 10:45
PROVIDERS: Emergency Provider Emergency Medicine; PCP Family Medicine
DX: L02.214 Cutaneous abscess of groin (principal); L03.314 Cellulitis of groin; F17.200 Nicotine dependence, unspecified, uncomplicated
CPT/HCPCS: 10060; 99283

== ENCOUNTER 2021-03-05 09:06 | Emergency (ER) | payer MEDICAID, SELFPAY ==
[2021-03-05 09:07] VITALS: BP 145/95; PULSE 88; RESP 15; TEMP 36.2; O2SAT 97; BMI 33.6
[2021-03-05 09:10] VITALS: BP 145/95; PULSE 88; RESP 15; TEMP 36.2; O2SAT 97
--- NOTE | 2021-03-05 09:19 | ED.DCSUM_ITS ---
- ER Visit Summary Date of Service: 03/05/21 Chief Complaint: Think I have thrush History of Present Illness: The patient is a 41 F currently on Bactrim for her right lower abdominal abscess she had I&D. Thinks she has developed thrush in her mouth since yesterday. Notes somewhat uncomfortable. No trouble swallowing or breathing. No fever or chills. Denies other complaints. She has had a similar situation before when she was on antibiotic. Physical Examination: Well-appearing middle-aged female. No acute distress. Vital signs stable afebrile. H EENT exam mild coating to the posterior aspect of her tongue. There is no tongue swelling. She does not have any teeth. The floor of her mouth is soft. There is no trouble swallowing or breathing. No erythema or exudate. Neck nontender. No lymphadenopathy. Lungs clear to auscultation bilaterally. Heart regular rhythm no murmur. Abdomen soft nontender normal bowel sounds no peritoneal signs. She is a previously I indeed right lower abdominal wall abscess that currently is not fluctuant nor tender. Patient moving all 4 extremities. No edema. Neurologically she is awake and alert. Test Results: None Emergency Department Course and Treatment: Patient has an early yeast infection in her mouth is currently on antibiotics for an abscess she had I&D. She will be started on Diflucan. Treatment Plan: Diflucan twice daily for 5 days. Follow-up if not improving. Return if worse. Disposition: Discharge Impression: Acute oral yeast infection Status post right lower abdominal wall abscess This note was generated with [employer] dictation software. It may contain incorrect words, spelling, and punctuation that were not noted in review of the chart prior to signing ED Disposition - Plan for ED Patient: Referrals: Cyrus Barahona MD [Primary Care Provider] -
--- NOTE | 2021-03-05 09:21 | ED.DEP ---
ED Disposition - Plan for ED Patient: Disposition: Home or Assisted Living Instructions: Oral Thrush Prescriptions: Fluconazole [Diflucan] 200 mg PO DAILY #7 tab Prescription Printed Referrals: Cyrus Barahona MD [Primary Care Provider] - 1 Week if not improving Additional Instructions: Diflucan daily for 7 days. Return if worse. Follow-up if not improving. Continue and finish your current antibiotic.
== END 2021-03-05 09:33 | disposition home or self-care (01) ==
LOC: ED 09:30
PROVIDERS: Emergency Provider Emergency Medicine; PCP Family Medicine
DX: B37.0 Candidal stomatitis (principal); L02.211 Cutaneous abscess of abdominal wall; Z72.0 Tobacco use
CPT/HCPCS: 99281; 99282

== ENCOUNTER → 2021-08-04 09:16 | Outpatient (CLI) | payer MEDICAID, SELFPAY ==
[2021-08-04 11:05] LABS: Anion Gap 4 (5-15); BUN 9 mg/dL (7-18); BUN/Creat Ratio 13.8 RATIO (10-20); Calcium,Total 8.9 mg/dL (8.5-10.1); Chloride 111 mmol/L (98-107); Cholesterol 174 mg/dL (200); Creatinine, Serum 0.65 mg/dL (0.55-1.02); EST Glomerular Filtration Rate 105 mL/min (>60); Est Glom Filt Rate - Afr Amer 127 mL/min (>60); Glucose 94 mg/dL (74-106); High Density Lipoprotein 36 mg/dL; Potassium 4.2 mmol/L (3.5-5.1); Sodium Level 139 mmol/L (136-145); Triglycerides 111 mg/dL; Very Low Density Lipoprotein 22 mg/dL (5-40)
== END ==
PROVIDERS: PCP Family Medicine; Referring Provider Family Medicine; Visit Provider Nurse Practitioner Family
DX: Z13.1 Encounter for screening for diabetes mellitus (principal); Z13.220 Encounter for screening for lipoid disorders
CPT/HCPCS: 36415; 80048; 80061

== ENCOUNTER 2021-08-14 22:16 | Emergency (ER) | payer MEDICAID, SELFPAY ==
[2021-08-14 22:16] VITALS: BP 163/94; PULSE 92; RESP 15; TEMP 36.1; O2SAT 96; BMI 38.2
[2021-08-14 22:30] VITALS: O2SAT 98
--- NOTE | 2021-08-14 22:30 | EKG12_ITS ---
Test Reason : CP Blood Pressure : / mmHG Vent. Rate : 091 BPM Atrial Rate : 091 BPM P-R Int : 186 ms QRS Dur : 094 ms QT Int : 366 ms P-R-T Axes : 043 -01 018 degrees QTc Int : 450 ms Normal sinus rhythm Normal ECG Confirmed by ROXANN ELI, ABHI ([id number]), avid editor ANNABELLA EL ([id number]) on 08/17/2021 1:16:58 PM Referred By: Confirmed By:ABHI HACKETT MD
--- NOTE | 2021-08-14 22:30 | ED.VIS.CHEST ---
HPI History of Present Illness Chief Complaint: Chest Pain Informant: patient Onset/Context/Timing Onset: Today (Onset 0600) Activity at onset: sudden Timing: Continuous Quality: Positive for Pressure Location: Left Parasternal Current Severity: Mild Maximum Severity: Moderate Worsened By: Nothing Relieved By: - (Applying pressure to her chest) Associated Symptoms: Negative for Nausea, Vomiting, Diaphoresis, Dyspnea, Cough, Fever, Lightheadedness, Acid Reflux and Palpitations Narrative Narrative: Patient presents with left-sided discomfort that has been continuous for 20+ hours. She states the pain is better when she pushes on it. Only risk factor for cardiac disease is smoking. She has no risk factors. She does have history of GERD and multinodular goiter, nontoxic. She denies fever, chills night sweats. She has rhinorrhea, congestion postnasal drainage. She denies earache. She does report decreased hearing on the right side and drainage from the right side. She denies neck pain. Denies shortness of breath. She has a smoker's cough. She denies nausea, vomiting diarrhea. She denies black or maroon-colored stool. She denies history of VTE. She denies leg pain, swelling discoloration. She has no risk factors for VTE. Prior Similar Symptoms: No Recent Illness/Hospitalization: No CVD Risk Factors: Positive for Smoking; Negative for Hypertension, Diabetes, Hypercholesterolemia and Family History 1' </=55 PE Risk Factors: Negative for Recent Travel/Surgery, Recent Immobilization, Prior DVT or PE, Cancer and OCP + Smoking + >/=35 TAD Risk Factors: Negative for Marfan's Syndrome, Hypertension and Family History PFSH PFS Medical History (Updated 08/14/21 @ 23:[address] Bonifacio Vazquez MD) Anxiety History of back problems Thyroid nodule Home Medications NK 08/14/21 [History Last Taken Unknown] Allergy/AdvReac Type Severity Reaction Status Date / Time prednisone Allergy Severe Angioedema Verified 08/14/21 22:20 ciprofloxacin [From Cipro] AdvReac Mild Other Verified 08/14/21 22:20 ciprofloxacin HCl AdvReac Mild Other Verified 08/14/21 22:20 [From Cipro] Surgical History History of laparoscopic cholecystectomy History of tonsillectomy History of tympanoplasty of right ear Social History (Updated 08/14/21 @ 22:[address] Bonifacio Vazquez MD) household members: family Smoking Status: Current every day smoker tobacco type: cigarettes alcohol intake: current alcohol intake frequency: a few times a month substance use type: does not use ROS ROS ED Constitutional Constitutional ED: Denies chills, fever(s), subjective or sweats Eyes Eyes: Denies none, blurry vision or change in vision ENT ENT ED: Denies ear pain, rhinorrhea or sore throat Cardiovascular Cardiovascular: Reports as per HPI Respiratory/Chest Respiratory/Chest: Denies cough, dyspnea or dyspnea on exertion Gastrointestinal Gastrointestinal: Denies abdominal pain, diarrhea, nausea or vomiting Genitourinary Genitourinary ED: Denies dysuria, hematuria or urinary frequency Musculoskeletal Musculoskeletal: Denies arthralgias, myalgias or neck pain Integumentary Denies abscess, Abrasions or rash Neurologic Neurologic: Denies headache(s) or weakness Endocrine Endocrinology: Denies polydipsia, polyphagia or polyuria Hematologic/Lymphatic Hematologic/Lymphatic: Denies easy bleeding or easy bruising Allergic/Immunologic Allergic/Immunologic ED: Denies mouth swelling or urticaria EXAM Physical Exam Const Vital Signs: 08/14/21 22:16 08/14/21 22:23 08/14/21 22:30 Temperature 97 F L Temperature Source Temporal Pulse Rate 92 Respiratory Rate 15 Respiratory Effort Normal Blood Pressure 163/94 H Blood Pressure Mean 117 Pulse Ox 96 98 Oxygen Delivery Method Room Air Positive well nourished and obese; Negative for well developed General Appearance ED: Negative for well developed Nutritional Appearance: obese HEENT Reports moist mucous membranes; Denies TM's clear HEENT Narrative: Patient has evidence of serous otitis on the right. The external auditory canal is normal. normocephalic and atraumatic Tympanic Membrane ED: Negative for TM's clear Eyes PERRL and EOMs intact bilaterally General Eye ED: Negative for pale conjunctiva or scleral icterus Neck no lymphadenopathy, supple and no JVD Chest Wall inspection of chest normal and palpation of chest normal Resp normal respiratory effort Effort and Inspection: respiratory distress Cardio regular rate, regular rhythm, S1 normal heart sound, S2 normal heart sound and no murmurs GI normal to inspection, nondistended, normoactive bowel sounds and soft to palpation Back/Spine no CVA tenderness; Negative for no thoracic nor lumbar tenderness Cervical Spine: Negative for cervical spine tenderness Extremity normal to inspection General Extremety ED: Negative for edema, pulses abnormal or tenderness General Extremity: Negative for edema or pulses abnormal Neuro oriented x3 and CN's II-XII intact bilaterally Sensorium / Orientation: awake and alert Motor Exam: strength 5/5 throughout Psych mental status grossly normal Skin no rashes or lesions noted Heart Score History: Slightly/Non-Suspicious ECG: Normal Age: </= 45 years Risk Factors: 1 or 2 Risk Factors Troponin: </= Normal Limit Score: 1 MDM MDM MDM Narrative Medical decision making narrative: Patient with atypical chest pain. Will obtain troponin EKG and chest x-ray. EKG is normal. Patient's work-up is negative. She was discharged home. Blood pressure slightly elevated. She was referred to her doctor for blood pressure check since she has no history of hypertension. Lab Data Attestation: I reviewed the patient's lab results. Labs: Laboratory Results - last 24 hr 08/14/21 08/14/21 22:37 22:37 WBC 6.5 RBC 4.57 Hgb 13.8 Hct 41.5 MCV 90.8 MCH 30.2 MCHC 33.3 RDW Std Deviation 42.3 RDW Coeff of Mary 12.8 Plt Count 239 MPV 9.3 Immature Gran % (Auto) 0.300 Neut % (Auto) 62.5 Lymph % (Auto) 26.6 [place] % (Auto) 9.1 Eos % (Auto) 1.2 Baso % (Auto) 0.3 Absolute Neuts (auto) 4.0 Absolute Lymphs (auto) 1.72 Nucleated RBC % 0 Sodium 142 Potassium 3.9 Chloride 109 H Carbon Dioxide 26.0 Anion Gap 7 BUN 12 Creatinine 0.67 Estim Creat Clear Calc 105.28 Est GFR (MDRD) Af Amer 122 Est GFR (MDRD) Non-Af 101 BUN/Creatinine Ratio 17.8 Glucose 107 H Calcium 9.1 Troponin I High Sens 5 Radiography Chest X-Ray - ED: 1 View and Read by ED Physician (Single view chest x-ray interpreted by me at 2257 is normal. Cardiac silhouette size normal. Mediastinum normal. Osseous structures normal. Lung parenchyma normal.) Diagnostic Testing: Radiology Impression Chest X-Ray 08/14/21 22:40 IMPRESSION: No acute abnormal cardiopulmonary finding. Electronically Signed: Rojelio Foss MD at 23:04 EDT Tel , Service support , EKG Initial EKG: Attestation: I personally reviewed and interpreted this EKG as follows: Interpretation: Sinus Rhythm (The EKG is normal. Ventricular rate is 91. WI interval is 186. Cures duration 94 ms. QT duration 3 and 66 ms. Garfield is normal. EKG is normal.) Discharge Plan Triage Chief Complaint: Chest Pain ED Provider: Bonifacio Vazquez Dx/Rx/DC Orders Clinical Impression: Left-sided chest pain, BP (high blood pressure) Instructions: ED Chest Pain, Noncardiac, ED Hypertension, To Be Confirmed Prescriptions: No Action NK RF: 0 Primary Care Provider: Cyrus Barahona Referrals: Cyrus Barahona MD [Primary Care Provider] - 1-2 Weeks Activity Restrictions/Additional Instructions: You need to call your doctor for appointment for blood pressure recheck. Your blood pressure is elevated and needs recheck. If on recheck your blood pressure is elevated Dr. Esquivel will need to start treatment. Disposition Disposition: Home, Self Care
--- NOTE | 2021-08-14 22:40 | RAD_ITS ---
STUDY: X-RAY CHEST REASON FOR EXAM: Female, 41 years old. Chest pain TECHNIQUE: Portable, upright, AP chest radiograph COMPARISON: None. FINDINGS: The lungs are clear and expanded. There is no demonstrated pleural abnormality. Normal size heart. Normal mediastinum and dave. Normal visualized pulmonary arteries. Normal visualized aortic arch and descending thoracic aorta. Normal visualized thoracic spine. Normal visualized ribs, clavicles, and shoulders. There is no demonstrated abnormality of the visualized soft tissue structures of the upper abdomen. RAD/Chest 1 View (Portable) IMPRESSION: No acute abnormal cardiopulmonary finding. Electronically Signed: Rojelio Foss MD at 23:04 EDT Tel , Service support ,
[2021-08-14 22:44] LABS: Absolute Lymphocyte Count 1.72 X10^3/uL (0.83-4.51); Basophil# 0.02 X10^3/uL; Basophil% 0.3 % (0-1); Eosinophil# 0.08 X10^3/uL; Eosinophils% 1.2 % (0-5); Hematocrit 41.5 % (37-47); Hemoglobin 13.8 g/dL (12.0-15.0); Lymphocyte # 1.72 X10^3/ul (0.83-4.51); Lymphocyte % 26.6 % (19-41); Mean Corp Hgb Conc 33.3 g/dL (32-36); Mean Corpuscular Hgb 30.2 pg (27.0-32.0); Mean Corpuscular Volume 90.8 fL (81-99); Mean Platelet Vol. 9.3 fl (6.2-12.0); Monocyte# 0.59 X10^3/uL; Monocyte% 9.1 % (0-10); NRBC Flagged by Analyzer 0 % (0-5); Neutrophil # 4.04 X10^3/uL (2.7-7.7); Neutrophil % 62.5 % (47-70); Platelet Count 239 K/mm3 (150-450); RBC Distribution Width CV 12.8 % (11.6-14.6); RBC Distribution Width SD 42.3 fl (35.1-43.9); Red Blood Count 4.57 M/mm3 (4.2-5.4); White Blood Count 6.5 K/mm3 (4.4-11.0)
[2021-08-14 23:03] LABS: Anion Gap 7 (5-15); BUN 12 mg/dL (7-18); BUN/Creat Ratio 17.8 RATIO (10-20); Calcium,Total 9.1 mg/dL (8.5-10.1); Chloride 109 mmol/L (98-107); Creatinine, Serum 0.67 mg/dL (0.55-1.02); EST Glomerular Filtration Rate 101 mL/min (>60); Est Glom Filt Rate - Afr Amer 122 mL/min (>60); Estimated Creatinine Clearance 105.28 ml/min; Glucose 107 mg/dL (74-106); Potassium 3.9 mmol/L (3.5-5.1); Sodium Level 142 mmol/L (136-145); Troponin-I HS 5 pg/mL (3.0-54.0)
[2021-08-14 23:17] VITALS: BP 134/95; PULSE 73; RESP 18; O2SAT 99
== END 2021-08-14 23:18 | disposition home or self-care (01) ==
PROVIDERS: Emergency Provider Emergency Medicine; PCP Family Medicine
DX: R07.89 Other chest pain (principal); R03.0 Elevated blood-pressure reading, without diagnosis of hypertension; F17.210 Nicotine dependence, cigarettes, uncomplicated; E66.9 Obesity, unspecified
CPT/HCPCS: 71045; 80048; 84484; 85025; 93005; 99284; A4216

== ENCOUNTER → 2021-11-09 13:51 | Outpatient (CLI) | payer MEDICAID, SELFPAY ==
--- NOTE | 2021-11-09 13:55 | VDLE_ITS ---
Reason For Study: PVD RIGHT GSV is normal. CFV is compressible, spontaneous, phasic, competent and demonstrates normal augmentation. FV is compressible, spontaneous, phasic, competent and demonstrates normal augmentation. POP V is compressible, spontaneous, phasic, competent and demonstrates normal augmentation. T/P Trunk is compressible. PTV is compressible. RT PerV is compressible. Procedure This is a venous duplex using B-mode, color flow and spectral Doppler. Exam performed in department. A preliminary report was called and/or faxed to Daniel. VL/Venous Duplex US, Unilateral Interpretation Summary Deep veins of the right lower extremity are patent and compressible segmentally . There is no evidence of right lower extremity deep vein thrombosis. Valvular competence shane ears intact within the proximal deep venous system on the right . The right great saphenous vein a ppears patent and compressible segmentally. Ordering Physician: Lilliana Sanchez Referring Physician: Cyrus Barahona Performed By: Dannielle Pham RVT
== END ==
PROVIDERS: PCP Family Medicine; Referring Provider Nurse Practitioner Family; Visit Provider Nurse Practitioner Family
DX: I73.9 Peripheral vascular disease, unspecified (principal)
CPT/HCPCS: 93971

== ENCOUNTER 2021-11-27 19:41 | Emergency (ER) | payer MEDICAID, SELFPAY ==
[2021-11-27 19:42] VITALS: BP 175/110; PULSE 100; RESP 18; TEMP 36.8; O2SAT 98; BMI 36.0
[2021-11-27 19:44] VITALS: BP 175/110; PULSE 100; RESP 18; TEMP 36.8; O2SAT 98
--- NOTE | 2021-11-27 22:02 | EX.ED.GENINJ ---
HPI History of Present Illness Chief Complaint: Bite Informant: patient Narrative Narrative: Patient is a 41-year-old female with no significant past medical history presenting with rat bite. Patient states around 2 AM she felt bite to her right ring finger. It woke her from sleep. She states wild rat most of crawled into her bed and bit her finger. It was not a pet. She denies any other complaints. She thinks her last tetanus was in 2011. She is having pain localized bruising of the site. No other complaints at this time. No associated numbness or tingling. Normal range of motion. Patient states she washed with soap and water and then poured peroxide on the wounds immediately afterwards. Tetanus Immunization: >10 years [facility] Medical History (Updated 11/27/21 @ 22:[address] Sona Parish DO) Anxiety History of back problems Thyroid nodule Home Medications amoxicillin-pot clavulanate 1 tab PO BID #14 tab 11/27/21 [Rx Last Taken Unknown] Allergy/AdvReac Type Severity Reaction Status Date / Time prednisone Allergy Severe Angioedema Verified 11/27/21 19:45 ciprofloxacin [From Cipro] AdvReac Mild Other Verified 11/27/21 19:45 ciprofloxacin HCl AdvReac Mild Other Verified 11/27/21 19:45 [From Cipro] Surgical History History of laparoscopic cholecystectomy History of tonsillectomy History of tympanoplasty of right ear Social History household members: family Smoking Status: Current every day smoker tobacco type: cigarettes alcohol intake: current alcohol intake frequency: a few times a month substance use type: does not use ROS ROS ED Constitutional Constitutional ED: Denies chills or fever(s) Eyes Eyes: Denies change in vision ENT ENT ED: Denies rhinorrhea or sore throat Cardiovascular Cardiovascular: Denies chest pain Respiratory/Chest Respiratory/Chest: Denies cough or dyspnea Gastrointestinal Gastrointestinal: Denies abdominal pain, nausea or vomiting Musculoskeletal Musculoskeletal: Reports other Details: right ring finger pain ; Denies arthralgias or myalgias Integumentary Reports Abrasions Neurologic Neurologic: Denies headache(s) or paresthesias Psychiatric Psychiatric: Denies depression EXAM Physical Exam Const Vital Signs: 11/27/21 19:42 11/27/21 19:44 Temperature 98.2 F 98.2 F Temperature Source Temporal Temporal Pulse Rate 100 100 Respiratory Rate 18 18 Blood Pressure 175/110 H 175/110 H Blood Pressure Mean 131 131 Pulse Ox 98 98 Oxygen Delivery Method Room Air Room Air Positive well nourished and well developed General Appearance ED: well developed HEENT atraumatic Eyes PERRL Neck full ROM Chest Wall inspection of chest normal Resp normal respiratory effort and clear to auscultation bilaterally Cardio regular rhythm Rate: regular rate Extremity full ROM Extremity Narrative: right ring finger middle phalanges. Normal ROM and sensation General Extremety ED: Yes tenderness; Negative for deformity or edema General Extremity: Negative for deformity or edema Neuro oriented x3, moves all extremities, no focal motor deficits and no sensory deficits noted Sensorium / Orientation: alert Skin Skin Narrative: 3 superficial semilunar small abrasions over the left middle right ring finger consistent with a bite. No active bleeding or surrounding erythema. MDM MDM MDM Narrative Medical decision making narrative: Patient was bit by a rat in her right ring finger less than 24 hours prior to arrival. She does have a small abrasion consistent with a rat bite on her finger. She has bruising and pain of the finger and really so I did obtain an x-ray. No obvious fracture interpreted by myself. Patient be discharged home on a course of Augmentin for prophylaxis from the bite. Tetanus is updated. Patient counseled on return precautions. She verbalized agreement plan. Discharged home in stable condition. Radiography X-Ray: Read by ED Physician, No Fracture and - (right ring finger ) Diagnostic Testing: Clinical Impression(s) from Imaging Studies Finger X-Ray 11/27/21 22:18 IMPRESSION: Normal x-ray examination of the fourth finger. Electronically Signed: Rakesh Quintana MD at 23:05 EST , Service support , Discharge Plan Triage Chief Complaint: Bite ED Provider: Sona Parish Dx/Rx/DC Orders Clinical Impression: Bitten by rat, Injury of right ring finger, Need for Tdap vaccination Instructions: ED Animal Bite (General) Prescriptions: New amoxicillin-pot clavulanate 875-125 mg tablet 1 tab PO BID Qty: 14 RF: 0 Primary Care Provider: Cyrus Barahona Referrals: Cyrus Barahona MD [Primary Care Provider] - Disposition Disposition: Home, Self Care Discharge Date/Time: 11/27/21 23:12
[2021-11-27] MEDS: Diphth,Pertuss(Acell),Tet Vac 0.5 ML Vial IM (22:08)
[2021-11-27] MEDS: Acetaminophen 500 MG Tablet PO (22:08)
[2021-11-27] MEDS: Amox/Clavulanate 875 MG Tablet PO (22:09)
--- NOTE | 2021-11-27 22:18 | RAD_ITS ---
STUDY: X-RAY - RIGHT HAND, ATTENTION FOR FINGER REASON FOR EXAM: Female, 41 years old. Injury/Pain TECHNIQUE: 3 view(s) of the finger were obtained. COMPARISON: None. FINDINGS: Normal metacarpal head. Normal metacarpophalangeal joint. Normal proximal phalanx. Normal middle phalanx. Normal distal phalanx. Normal proximal interphalangeal joint. Normal distal interphalangeal joint. There is no demonstrated fracture. RAD/Finger(s) Min 2 Views IMPRESSION: Normal x-ray examination of the fourth finger. Electronically Signed: Rakesh Quintana MD at 23:05 EST , Service support ,
== END 2021-11-27 23:12 | disposition home or self-care (01) ==
PROVIDERS: Emergency Provider Emergency Medicine; PCP Family Medicine; Visit Provider Emergency Medicine
DX: S61.254A Open bite of right ring finger without damage to nail, initial encounter (principal); F17.210 Nicotine dependence, cigarettes, uncomplicated; Z23 Encounter for immunization; X58.XXXA Exposure to other specified factors, initial encounter
CPT/HCPCS: 73140; 90471; 90715; 99283

== ENCOUNTER → 2022-08-03 | Outpatient (CLI) | payer MEDICAID, SELFPAY ==
[2022-08-03 15:16] LABS: Absolute Lymphocyte Count 1.96 X10^3/uL (0.83-4.51); Absolute Neutrophil Count 3.2 X10^3/uL (2.0-7.7); Basophil# 0.03 X10^3/uL; Basophil% 0.5 % (0-1); Eosinophil# 0.05 X10^3/uL; Eosinophils% 0.9 % (0-5); Hematocrit 45.3 % (37-47); Hemoglobin 14.8 g/dL (12.0-15.0); Lymphocyte # 1.96 X10^3/ul (0.83-4.51); Lymphocyte % 33.9 % (19-41); Mean Corp Hgb Conc 32.7 g/dL (32-36); Mean Corpuscular Volume 91.7 fL (81-99); Mean Platelet Vol. 10.1 fl (6.2-12.0); Monocyte# 0.55 X10^3/uL; Monocyte% 9.5 % (0-10); NRBC Flagged by Analyzer 0 % (0-5); Neutrophil # 3.18 X10^3/uL (2.7-7.7); Platelet Count 272 K/mm3 (150-450); Red Blood Count 4.94 M/mm3 (4.2-5.4); White Blood Count 5.8 K/mm3 (4.4-11.0)
[2022-08-03 15:28] LABS: ALB/GLOB Ratio 0.8 RATIO (0.9-2.4); AST(SGOT) 18 U/L (15-37); Alanine Aminotransfer ALT/SGPT 31 U/L (13-56); Albumin, Serum 3.5 g/dL (3.2-5.0); Alkaline Phosphatase 92 U/L (45-117); Anion Gap 9 (5-15); BUN 11 mg/dL (7-18); BUN/Creat Ratio 15.1 RATIO (10-20); Calcium,Total 9.3 mg/dL (8.5-10.1); Chloride 108 mmol/L (98-107); Cholesterol 183 mg/dL (200); Creatinine, Serum 0.73 mg/dL (0.55-1.02); EST Glomerular Filtration Rate 92 mL/min (>60); Est Glom Filt Rate - Afr Amer 111 mL/min (>60); Globulin 4.6 g/dL (2.2-4.2); Glucose 96 mg/dL (74-106); High Density Lipoprotein 37 mg/dL; Potassium 4.1 mmol/L (3.5-5.1); Protein, Total 8.1 g/dL (6.4-8.2); Sodium Level 139 mmol/L (136-145); Triglycerides 124 mg/dL; Very Low Density Lipoprotein 25 mg/dL (5-40)
[2022-08-03 15:37] LABS: Hemoglobin A1c 5.6 % (3.8-5.6)
== END | disposition home or self-care (01) ==
LOC: MFPLAB 11:21
PROVIDERS: PCP Family Medicine; Referring Provider Family Medicine; Visit Provider Family Medicine
DX: R73.02 Impaired glucose tolerance (oral) (principal); E55.9 Vitamin D deficiency, unspecified; E66.9 Obesity, unspecified
CPT/HCPCS: 36415; 80053; 80061; 82306; 83036; 85025

== ENCOUNTER → 2022-08-11 | Outpatient (CLI) | payer MEDICAID, SELFPAY ==
--- NOTE | 2022-08-11 13:01 | US_ITS ---
STUDY: THYROID ULTRASOUND REASON FOR EXAM: Female, 42 years old. nodule TECHNIQUE: Ultrasound evaluation of the thyroid was performed with real-time and static whitten-scale imaging. COMPARISON: ct 6.2.20 US 2.25.19 FINDINGS: RIGHT LOBE: The right lobe of the thyroid gland measures 4.9 x 2.1 cm. There is a heterogeneous echotexture. Colloid cysts is visualized. These measure 3 x 3 mm. LEFT LOBE: The left lobe of the thyroid gland measures 5 x 2.1 cm. There is a heterogeneous echotexture. There are nodules. Superior nodule measures 6 x 5 x 3 mm. Mid nodule measures 7 x 5 x 2 mm and 8 x 6 x 4 mm. ISTHMUS: The isthmus measures 2.4 mm. Anterior subcutaneous fluid collection US/Thyroid IMPRESSION: There are RIGHT nodules. This nodule is solid or almost completely solid, hypoechoic, [id number], smoothly marginated and contains no echogenic foci. TI-RADS points: 4. TI-RADS category: TR4. This nodule is moderately suspicious but no FNA or follow-up is necessary given the small size of this nodule. There are left nodules. This nodule is mixed cystic and solid, hypoechoic, [id number], smoothly marginated and contains no echogenic foci. TI-RADS points: 3. TI-RADS category: TR3. This nodule is mildly suspicious but no FNA or follow-up is necessary given the small size of this nodule. Electronically Signed: Andrea Lui MD at 16:50 EDT ,
== END | disposition home or self-care (01) ==
PROVIDERS: PCP Family Medicine; Referring Provider Family Medicine; Visit Provider Family Medicine
DX: E04.1 Nontoxic single thyroid nodule (principal)
CPT/HCPCS: 76536

== ENCOUNTER 2022-08-26 08:03 | Emergency (ER) | payer MEDICAID, SELFPAY ==
[2022-08-26 08:05] VITALS: BP 146/100; PULSE 97; RESP 14; TEMP 36.2; O2SAT 97; BMI 35.4
[2022-08-26 08:46] LABS: Absolute Lymphocyte Count 1.49 X10^3/uL (0.83-4.51); Absolute Neutrophil Count 6.2 X10^3/uL (2.0-7.7); Basophil# 0.03 X10^3/uL; Basophil% 0.3 % (0-1); Eosinophil# 0.19 X10^3/uL; Eosinophils% 2.2 % (0-5); Hematocrit 43.3 % (37-47); Hemoglobin 14.4 g/dL (12.0-15.0); Lymphocyte # 1.49 X10^3/ul (0.83-4.51); Lymphocyte % 17.3 % (19-41); Mean Corp Hgb Conc 33.3 g/dL (32-36); Mean Corpuscular Volume 90.2 fL (81-99); Mean Platelet Vol. 9.1 fl (6.2-12.0); Monocyte# 0.62 X10^3/uL; Monocyte% 7.2 % (0-10); NRBC Flagged by Analyzer 0 % (0-5); Neutrophil # 6.23 X10^3/uL (2.7-7.7); Neutrophil % 72.5 % (47-70); Platelet Count 254 K/mm3 (150-450); RBC Distribution Width CV 12.9 % (11.6-14.6); RBC Distribution Width SD 42.3 fl (35.1-43.9); White Blood Count 8.6 K/mm3 (4.4-11.0)
--- NOTE | 2022-08-26 08:53 | EDS_ITS ---
HPI HPI - GI History of Present Illness Chief Complaint: Nausea/Vomiting/Diarrhea Informant: patient Abdominal Pain/Flank Pain Onset: Days (4) Context: Gradual Onset Timing: Continuous Quality: - (Pressure) Location: LUQ and LLQ Worsened by: Nothing Relieved by: Nothing Nausea/Vomiting/Emesis GI Symptom: Positive for Nausea and Vomiting Onset: Days (4) Quality: Positive for Nonbilious; Negative for Blood streaks, Coffee ground or Hematemesis Diarrhea/Melena/Hematochezia GI Symptom: Positive for Diarrhea; Negative for Melena or Hematochezia Stool Quality: Positive for Loose and Watery Associated Symptoms Associated Symptoms: Negative for Dysuria, Frequency or Hematuria Narrative Narrative: Patient presents with abdominal pain that has been getting progressively worse over the past 4 days. Patient states she started with nausea and vomiting. Patient states her pain has gradually gotten worse. Patient states it has been constant. Patient describes her pain as a pressure. Patient states her pain is over the left side of her abdomen. Patient states nothing makes it better and nothing makes it worse. Patient has been having some nausea and vomiting over the last 4 days. Patient states she is unable to keep anything down. Patient denies any hematemesis or coffee-ground emesis. Patient admits to some diarrhea. Patient states it is loose and watery. Patient denies any melena or hematochezia. Patient denies any urinary complaints. [facility] Medical History (Updated 08/26/22 @ 12:[address] Asif Laura, ) Anxiety History of back problems Thyroid nodule Home Medications hydrocodone-acetaminophen 5-325mg 5mg-325mg 1 tab PO Q6H PRN PRN Pain 3 days #10 TABLETS 08/26/22 [Rx Last Taken Unknown] loperamide 2 mg tablet (Imodium A-D) 2 mg PO Q6H PRN loose stool #10 tabs 08/26/22 [Rx Last Taken Unknown] sertraline 100 mg tablet (Zoloft) 100 mg PO DAILY 08/26/22 [History Last Taken Unknown] Allergy/AdvReac Type Severity Reaction Status Date / Time prednisone Allergy Severe Angioedema Verified 08/26/22 08:04 ciprofloxacin [From Cipro] AdvReac Mild Other Verified 08/26/22 08:04 ciprofloxacin HCl AdvReac Mild Other Verified 08/26/22 08:04 [From Cipro] Surgical History History of laparoscopic cholecystectomy History of tonsillectomy History of tympanoplasty of right ear Social History household members: family Smoking Status: Current every day smoker tobacco type: cigarettes alcohol intake: current alcohol intake frequency: a few times a month substance use type: does not use ROS ROS ED Constitutional Constitutional ED: Reports chills, fever(s) and subjective Eyes Eyes: Denies blurry vision or change in vision ENT ENT ED: Denies rhinorrhea or sore throat Cardiovascular Cardiovascular: Denies chest pain or palpitations Respiratory/Chest Respiratory/Chest: Reports cough and sputum; Denies dyspnea Gastrointestinal Gastrointestinal: Reports abdominal pain, diarrhea, nausea and vomiting Genitourinary Genitourinary ED: Denies dysuria or hematuria Musculoskeletal Musculoskeletal: Denies back pain or neck pain Integumentary Denies abscess or rash Neurologic Neurologic: Reports headache(s); Denies weakness Allergic/Immunologic Allergic/Immunologic ED: Denies mouth swelling or urticaria EXAM Physical Exam Const Vital Signs: 08/26/22 08:05 08/26/22 11:59 Temperature 97.2 F L Temperature Source Temporal Pulse Rate 97 77 Respiratory Rate 14 18 Blood Pressure 146/100 H 121/88 H Blood Pressure Mean 115 99 Pulse Ox 97 99 Oxygen Delivery Method Room Air Room Air Positive well nourished, well developed and obese General Appearance ED: well developed and NAD Nutritional Appearance: obese HEENT Reports moist mucous membranes Neck supple and no JVD Resp normal respiratory effort and clear to auscultation bilaterally Cardio regular rate, regular rhythm and no murmurs GI normal to inspection, nondistended, normoactive bowel sounds Palpation: soft and tender LLQ (Mild) and LUQ (Mild); Negative for guarding or rebound tenderness present Back/Spine no CVA tenderness Extremity normal to inspection General Extremety ED: Negative for edema or tenderness General Extremity: Negative for edema Neuro oriented x3, CN's II-XII intact bilaterally and no sensory deficits noted Sensorium / Orientation: alert Motor Exam: strength 5/5 throughout Psych mental status grossly normal Skin no rashes or lesions noted MDM MDM MDM Narrative Medical decision making narrative: Patient was given morphine and Zofran here. CBC was within normal limits. Basic metabolic profile was within normal limits. Serum hCG was negative. Urinalysis does not show any evidence of urinary tract infection. CT scan of the abdomen pelvis was obtained. There is no acute intra abdominal abnormality. This was interpreted by the radiologist and reviewed by myself. Patient is feeling better on reevaluation. Patient requested medication for her diarrhea. Patient was given a prescription for Imodium and a prescription for a short course of [place] for pain. Patient was instructed to follow-up with her primary care physician in 3 to 5 days. Patient understood and was agreeable with the plan. All questions were answered. Lab Data Attestation: I reviewed the patient's lab results. Labs: Laboratory Results - last 24 hr 08/26/22 08/26/22 08/26/22 08:35 08:35 08:35 WBC 8.6 RBC 4.80 Hgb 14.4 Hct 43.3 MCV 90.2 MCH 30.0 MCHC 33.3 RDW Std Deviation 42.3 RDW Coeff of Mary 12.9 Plt Count 254 MPV 9.1 Immature Gran % (Auto) 0.500 Neut % (Auto) 72.5 H Lymph % (Auto) 17.3 L [place] % (Auto) 7.2 Eos % (Auto) 2.2 Baso % (Auto) 0.3 Absolute Neuts (auto) 6.2 Absolute Lymphs (auto) 1.49 Nucleated RBC % 0 Sodium 140 Potassium 3.9 Chloride 112 H Carbon Dioxide 22.0 Anion Gap 6 BUN 9 Creatinine 0.65 Estim Creat Clear Calc 107.41 Est GFR (MDRD) Af Amer 127 Est GFR (MDRD) Non-Af 105 BUN/Creatinine Ratio 13.9 Glucose 102 Calcium 8.9 Serum , Qual NEGATIVE Urine Color Urine Clarity Urine pH Ur Specific [place] Urine Protein Urine Glucose (UA) Urine Ketones Urine Occult Blood Urine Nitrite Urine Bilirubin Urine Urobilinogen Ur Leukocyte Esterase Urine RBC Urine WBC Ur Squamous Epith Cells Urine Bacteria Urine Mucus 08/26/22 09:39 WBC RBC Hgb Hct MCV MCH MCHC RDW Std Deviation RDW Coeff of Mary Plt Count MPV Immature Gran % (Auto) Neut % (Auto) Lymph % (Auto) [place] % (Auto) Eos % (Auto) Baso % (Auto) Absolute Neuts (auto) Absolute Lymphs (auto) Nucleated RBC % Sodium Potassium Chloride Carbon Dioxide Anion Gap BUN Creatinine Estim Creat Clear Calc Est GFR (MDRD) Af Amer Est GFR (MDRD) Non-Af BUN/Creatinine Ratio Glucose Calcium Serum , Qual Urine Color Yellow Urine Clarity Clear Urine pH 6.5 Ur Specific [place] 1.010 Urine Protein Negative Urine Glucose (UA) Normal Urine Ketones Negative Urine Occult Blood Negative Urine Nitrite Negative Urine Bilirubin Negative Urine Urobilinogen Normal Ur Leukocyte Esterase Negative Urine RBC 0 SEEN Urine WBC 0 SEEN Ur Squamous Epith Cells 0 SEEN Urine Bacteria 0 SEEN Urine Mucus 0 SEEN Radiography Diagnostic Testing: Clinical Impression(s) from Imaging Studies Abdomen/Pelvis CT 08/26/22 08:57 IMPRESSION: Fatty infiltration of the liver. Status post cholecystectomy. Scattered sigmoid diverticula. Electronically Signed: Jose Valera MD at 11:12 EDT , Discharge Plan Triage Chief Complaint: Nausea/Vomiting/Diarrhea ED Provider: Asif Laura Dx/Rx/DC Orders Clinical Impression: Abdominal pain, Nausea vomiting and diarrhea Instructions: ED Abdominal Pain Unkn Cause Fem, ED Diarrhea, Unknown Cause Prescriptions: New hydrocodone-acetaminophen [hydrocodone-acetaminophen] 1 TABLET tablet 1 tab PO Q6H PRN PRN (Reason: Pain) 3 Days Qty: 10 0RF loperamide [Imodium A-D] 2 mg tablet 2 mg PO Q6H PRN (Reason: loose stool) Qty: 10 0RF No Action sertraline [Zoloft] 100 mg Tablet 100 mg PO DAILY Primary Care Provider: Cyrus Barahona Referrals: Cyrus Barahona MD [Primary Care Provider] - 3-5 Days Disposition Disposition: Home, Self Care
[2022-08-26 08:55] LABS: Internal QC Validated? YES +Cl - CLEAR BKGD; Pregnancy, Serum, hCG Quali. NEGATIVE Negative
--- NOTE | 2022-08-26 08:57 | CT_ITS ---
STUDY: CT ABDOMEN AND PELVIS WITH CONTRAST REASON FOR EXAM: Female, 42 years old. Nausea and vomiting and diarrhea since Tuesday. Abdominal pain. RADIATION DOSAGE (If Supplied By Facility): CTDIvol = ( 18.43 ) mGy, DLP = ( 1417.31 ) mGycm TECHNIQUE: Transaxial images were obtained from the dome of the diaphragm to the symphysis pubis with oral contrast. Oral and amp;amp; IV Gastrografin and amp;amp; 100mL Isovue-300 was administered. Sagittal and coronal images were reconstructed. Individualized dose optimization techniques were used for this CT. COMPARISON: Comparison is made with prior examination in 07/04/2019. FINDINGS: Minimal degree of bibasilar atelectasis. The visualized portions of the heart are within normal limits. There is decreased attenuation of the liver consistent with steatosis. There are surgical clips in the gallbladder fossa consistent with a prior cholecystectomy. Normal spleen. Normal pancreas. There is a small, circumscribed, smooth, low attenuation left adrenal mass, consistent with an adrenal adenoma. This measures 9.4 mm. Normal right adrenal gland. Normal right kidney. Normal left kidney. Normal visualized stomach. Normal small intestine. There are scattered colonic diverticula consistent with diverticulosis. ESSURE devices are seen in both fallopian tubes. The appendix is visualized and appears normal. Normal abdominal aorta. Normal inferior vena cava. Normal retroperitoneum. Normal urinary bladder. Normal abdominal wall. Normal osseous structures. CT/Abdomen/Pelvis WITH Contrast IMPRESSION: Fatty infiltration of the liver. Status post cholecystectomy. Scattered sigmoid diverticula. Electronically Signed: Jose Valera MD at 11:12 EDT ,
[2022-08-26 08:58] LABS: Anion Gap 6 (5-15); BUN 9 mg/dL (7-18); BUN/Creat Ratio 13.9 RATIO (10-20); Calcium,Total 8.9 mg/dL (8.5-10.1); Chloride 112 mmol/L (98-107); Creatinine, Serum 0.65 mg/dL (0.55-1.02); EST Glomerular Filtration Rate 105 mL/min (>60); Est Glom Filt Rate - Afr Amer 127 mL/min (>60); Estimated Creatinine Clearance 107.41 ml/min; Glucose 102 mg/dL (74-106); Potassium 3.9 mmol/L (3.5-5.1); Sodium Level 140 mmol/L (136-145)
[2022-08-26] MEDS: Ondansetron 4 MG/2 ML Vial IV (09:05)
[2022-08-26] MEDS: Morphine 4 MG/ML Syringe IV (09:05)
[2022-08-26 09:45] LABS: Bacteria 0 SEEN /hpf (None Seen); Mucous, Urine 0 SEEN /hpf (<or=2+); Red Blood Cells-Urine 0 SEEN /hpf (0-5); Squamous Epithelial Cells - UA 0 SEEN /hpf (5-10); White Blood Cells 0 SEEN /hpf (0-5)
[2022-08-26 09:46] LABS: Color, Urine Yellow (Yellow); Glucose, Dipstick Normal (Normal); Ketone-Dipstick Negative (Negative); Leukocyte Esterase-Dipstick Negative /ul (Negative); Nitrite-Dipstick Negative (Negative); Occult Blood-Urine Negative /ul (Negative); Protein-Dipstick Negative (Negative); Urine Bilirubin Dipstick Negative (Negative); Urine Clarity Clear (Clear); Urine Urobilinogen Normal (Normal); Urine pH 6.5 (5.0 - 8.0)
[2022-08-26 11:59] VITALS: BP 121/88; PULSE 77; RESP 18; O2SAT 99
== END 2022-08-26 12:45 | disposition home or self-care (01) ==
PROVIDERS: Emergency Provider Emergency Medicine; PCP Family Medicine; Visit Provider Emergency Medicine
DX: R10.12 Left upper quadrant pain (principal); R10.32 Left lower quadrant pain; R11.2 Nausea with vomiting, unspecified; R19.7 Diarrhea, unspecified; F17.210 Nicotine dependence, cigarettes, uncomplicated; E66.9 Obesity, unspecified; Z68.35 Body mass index [BMI] 35.0-35.9, adult; Z90.49 Acquired absence of other specified parts of digestive tract
CPT/HCPCS: 74177; 80048; 81001; 84703; 85025; 96374; 96375; 99282; J7030; Q9967; A4216; J2405

== ENCOUNTER 2022-12-27 00:25 | Emergency (ER) | payer MEDICAID, SELFPAY ==
[2022-12-27] VITALS (8 sets, daily range): BP systolic 138–147; BP diastolic 64–97; PULSE 71–105; RESP 16–18; TEMP 36.1; O2SAT 95–98; BMI 37.2
[2022-12-27 01:11] LABS: Absolute Lymphocyte Count 2.37 X10^3/uL (0.83-4.51); Basophil# 0.04 X10^3/uL; Basophil% 0.4 % (0-1); Eosinophil# 0.08 X10^3/uL; Eosinophils% 0.8 % (0-5); Hematocrit 40.9 % (37-47); Lymphocyte # 2.37 X10^3/ul (0.83-4.51); Lymphocyte % 23.1 % (19-41); Mean Corp Hgb Conc 34.2 g/dL (32-36); Mean Corpuscular Hgb 30.9 pg (27.0-32.0); Mean Corpuscular Volume 90.3 fL (81-99); Mean Platelet Vol. 9.7 fl (6.2-12.0); Monocyte# 0.77 X10^3/uL; Monocyte% 7.5 % (0-10); NRBC Flagged by Analyzer 0 % (0-5); Neutrophil # 6.96 X10^3/uL (2.7-7.7); Neutrophil % 67.8 % (47-70); POSITIVE COUNT YES; Platelet Count 246 K/mm3 (150-450); RBC Distribution Width CV 12.7 % (11.6-14.6); RBC Distribution Width SD 41.8 fl (35.1-43.9); Red Blood Count 4.53 M/mm3 (4.2-5.4); White Blood Count 10.3 K/mm3 (4.4-11.0)
[2022-12-27 01:13] LABS: Differential Indicated SCAN CRITERIA MET
[2022-12-27 01:18] LABS: Internal QC Validated? YES +Cl - CLEAR BKGD; Pregnancy, Serum, hCG Quali. NEGATIVE Negative
[2022-12-27 01:21] LABS: Anion Gap 9 (5-15); BUN 16 mg/dL (7-18); BUN/Creat Ratio 22.2 RATIO (10-20); Calcium,Total 8.9 mg/dL (8.5-10.1); Chloride 113 mmol/L (98-107); Creatinine, Serum 0.72 mg/dL (0.55-1.02); EST Glomerular Filtration Rate 93 mL/min (>60); Est Glom Filt Rate - Afr Amer 113 mL/min (>60); Estimated Creatinine Clearance 96.96 ml/min; Glucose 104 mg/dL (74-106); Potassium 2.9 mmol/L (3.5-5.1); Sodium Level 145 mmol/L (136-145)
[2022-12-27 01:28] LABS: Amphetamine Urine VISTA NEGATIVE (<1000 ng/mL); Barbiturate Urine VISTA NEGATIVE (< 200 ng/mL); Benzodiazepine Urine VISTA NEGATIVE (< 200 ng/mL); Cocaine Urine VISTA NEGATIVE (< 300 ng/mL); Ecstacy Urine VISTA NEGATIVE (< 500 ng/mL); Methadone Urine VISTA NEGATIVE (< 300 ng/mL); PCP Urine VISTA NEGATIVE (< 25 ng/mL); THC Urine VISTA NEGATIVE (< 50 ng/mL); Vista UDS pH Range 4
[2022-12-27] MEDS: Potassium Chloride Oral Tablet 20 MEQ 40 MEQ PO (01:51)
[2022-12-27] MEDS: Ondansetron ODT 4 MG Tablet PO (01:51)
[2022-12-27] MEDS: Mag Hydrox/Al Hydrox/Simeth 30 ML UDC PO (01:51)
--- NOTE | 2022-12-27 02:59 | ED.RN ---
THIS CARDIOLOGY PHYSICIAN ASSISTANT CALLED AND PAGED CRISIS. CRISIS CALLED BACK 3AM, KRISTA, SAID SHE HAS 1 CASE THEN SHE WILL BE IN TO TALK TO THE PT.
--- NOTE | 2022-12-27 06:14 | EDS_ITS ---
HPI History of Present Illness Chief Complaint: Suicidal Narrative Narrative: Patient is a 42-year-old female who reports a longstanding history of depression with suicidal ideation. She reports multiple years ago she tried cutting herself but did not tell anyone about this and therefore never received treatment or placement in a psychiatric hospital. She states that she deals with depression and suicidal ideation almost daily but in the past weeks her symptoms seem to have increased. She states it is to the point now where she plans on harming herself by overdosing on medication. She states that a family friend noticed her worsening symptoms and with this brought her into the hospital for evaluation. The patient does states she has been drinking alcohol tonight secondary to her depression but denies any other illicit drug use. She states that despite her longstanding history of depression with suicidal ideation she has not been hospitalized for this in the past [facility] Medical History (Updated 12/27/22 @ 06:[address] Domingo Nagel DO) Anxiety History of back problems Thyroid nodule Home Medications sertraline 100 mg tablet (Zoloft) 100 mg PO DAILY 08/26/22 [History Last Taken Unknown] Allergy/AdvReac Type Severity Reaction Status Date / Time prednisone Allergy Severe Angioedema Verified 12/27/22 00:30 ciprofloxacin [From Cipro] AdvReac Mild Other Verified 12/27/22 00:30 Surgical History History of laparoscopic cholecystectomy History of tonsillectomy History of tympanoplasty of right ear Social History household members: family Smoking Status: Current every day smoker tobacco type: cigarettes alcohol intake: current alcohol intake frequency: a few times a month substance use type: does not use ROS ROS ED Constitutional Constitutional ED: Denies chills or fever(s) ENT ENT ED: Denies sore throat Cardiovascular Cardiovascular: Denies chest pain Respiratory/Chest Respiratory/Chest: Denies cough or dyspnea Gastrointestinal Gastrointestinal: Reports nausea and vomiting; Denies abdominal pain or diarrhea Genitourinary Genitourinary ED: Denies dysuria Musculoskeletal Musculoskeletal: Denies myalgias Integumentary Denies rash Neurologic Neurologic: Denies headache(s) Psychiatric Psychiatric: Reports depression, suicidal ideation and suicidal thoughts Hematologic/Lymphatic Hematologic/Lymphatic: Denies easy bleeding or easy bruising EXAM Physical Exam Const Vital Signs: 12/27/22 00:26 12/27/22 01:56 12/27/22 02:42 Temperature 97 F L Temperature Source Temporal Pulse Rate 101 H Respiratory Rate 16 18 18 Blood Pressure 140/97 H Blood Pressure Mean 111 Pulse Ox 97 Oxygen Delivery Method Room Air 12/27/22 03:38 Temperature Temperature Source Pulse Rate 105 H Respiratory Rate 18 Blood Pressure Blood Pressure Mean Pulse Ox 95 Oxygen Delivery Method Room Air Positive well nourished, well developed and obese General Appearance ED: well developed Nutritional Appearance: obese HEENT Reports moist mucous membranes Eyes EOMs intact bilaterally Eyes Narrative: Pupils are slightly dilated and sluggish to respond with mild scleral injection consistent with history of alcohol use Neck supple Neck Narrative: No nuchal rigidity or meningeal signs Chest Wall palpation of chest normal Resp normal respiratory effort and clear to auscultation bilaterally Cardio regular rate and regular rhythm Rate: other Other Details: Radial pulses are plus 2 out of 4 bilaterally are equal and symmetric GI normal to inspection, nondistended, normoactive bowel sounds, non-tender, non- distended and no masses GI Narrative: No voluntary guarding or rigidity no pulsatile mass Auscultation: normoactive bowel sounds Palpation: soft Extremity normal to inspection Neuro oriented x3 and CN's II-XII intact bilaterally Sensorium / Orientation: alert Psych Psych Narrative: Patient has depressed/flat affect with suicidal ideation Skin no rashes or lesions noted MDM MDM MDM Narrative Medical decision making narrative: Patient presented to the ER in no acute distress. She reported a longstanding history of depression with suicidal ideation but also stated that due to increased life stressors her symptoms have worsened in the past week. She states she now has suicidal ideation with a plan to overdose. Secondary to this I elected to perform a basic psychiatric screening. Labs showed hypokalemia but otherwise no clinically significant findings. The potassium was replaced and as she was having bouts of vomiting from the alcohol she was given Zofran and a GI cocktail. Because of her worsening symptoms I do not feel it is appropriate or safe for her to return home and therefore a pink slip was filled out and crisis center was contacted. Crisis center evaluated the patient the ER and they do agree that she does require placement at this time secondary to worsening symptoms. Therefore they will work on psychiatric placement and the patient will remain in the ER under observation until that time. The patient has been medically cleared from the emergency room standpoint for transfer/placement in a psychiatric hospital. Lab Data Attestation: I reviewed the patient's lab results. Labs: Laboratory Results - last 24 hr 12/27/22 12/27/22 12/27/22 00:40 00:40 00:40 WBC 10.3 RBC 4.53 Hgb 14.0 Hct 40.9 MCV 90.3 MCH 30.9 MCHC 34.2 RDW Std Deviation 41.8 RDW Coeff of Mary 12.7 Plt Count 246 MPV 9.7 Immature Gran % (Auto) 0.400 Neut % (Auto) 67.8 Lymph % (Auto) 23.1 [place] % (Auto) 7.5 Eos % (Auto) 0.8 Baso % (Auto) 0.4 Absolute Neuts (auto) 7.0 Absolute Lymphs (auto) 2.37 Nucleated RBC % 0 Sodium 145 Potassium 2.9 L Chloride 113 H Carbon Dioxide 23.0 Anion Gap 9 BUN 16 Creatinine 0.72 Estim Creat Clear Calc 96.96 Est GFR (MDRD) Af Amer 113 Est GFR (MDRD) Non-Af 93 BUN/Creatinine Ratio 22.2 H Glucose 104 Calcium 8.9 Serum , Qual Urine Opiates Screen Urine Methadone Screen Ur Barbiturates Screen Ur Phencyclidine Scrn Ur Amphetamines Screen MDMA (Ecstasy) Screen U Benzodiazepines Scrn Urine Cocaine Screen U Cannabinoids Screen Ur Drug Screen Comment Ethyl Alcohol 139.0 12/27/22 12/27/22 12/27/22 00:40 01:10 03:05 WBC RBC Hgb Hct MCV MCH MCHC RDW Std Deviation RDW Coeff of Mary Plt Count MPV Immature Gran % (Auto) Neut % (Auto) Lymph % (Auto) [place] % (Auto) Eos % (Auto) Baso % (Auto) Absolute Neuts (auto) Absolute Lymphs (auto) Nucleated RBC % Sodium Potassium Chloride Carbon Dioxide Anion Gap BUN Creatinine Estim Creat Clear Calc Est GFR (MDRD) Af Amer Est GFR (MDRD) Non-Af BUN/Creatinine Ratio Glucose Calcium Serum , Qual NEGATIVE Urine Opiates Screen NEGATIVE Urine Methadone Screen NEGATIVE Ur Barbiturates Screen NEGATIVE Ur Phencyclidine Scrn NEGATIVE Ur Amphetamines Screen NEGATIVE MDMA (Ecstasy) Screen NEGATIVE U Benzodiazepines Scrn NEGATIVE Urine Cocaine Screen NEGATIVE U Cannabinoids Screen NEGATIVE Ur Drug Screen Comment Ethyl Alcohol 78.0 Discharge Plan Triage Chief Complaint: Suicidal ED Provider: Domingo Nagel Dx/Rx/DC Orders Clinical Impression: Depression with suicidal ideation, Alcohol intoxication, Acute hypokalemia Prescriptions: No Action sertraline [Zoloft] 100 mg Tablet 100 mg PO DAILY Primary Care Provider: Cyrus Barahona Referrals: Cyrus Barahona MD [Primary Care Provider] - Disposition Disposition: Psychiatric Hospital or Unit
--- NOTE | 2022-12-27 07:01 | EKG12_ITS ---
Test Reason : MEDICAL CLEARANCE Blood Pressure : / mmHG Vent. Rate : 079 BPM Atrial Rate : 079 BPM P-R Int : 182 ms QRS Dur : 092 ms QT Int : 386 ms P-R-T Axes : 050 001 009 degrees QTc Int : 442 ms Normal sinus rhythm Normal ECG Confirmed by ROXANN ELI, ABHI ([id number]), features editor ANNABELLA EL ([id number]) on 12/28/2022 10:14:08 AM Referred By: Confirmed By:ABHI HACKETT MD
--- NOTE | 2022-12-27 09:09 | NURSING ---
CALLED [facility], TALKED TO KATHLEEN. THEY ARE GETTING READY TO CALL PENDER DONALD. SHE WILL CALL US BACK WITH STATUS
--- NOTE | 2022-12-27 09:17 | NURSING ---
KATHLEEN, [facility], CALLED. THEY HAVE DISCHARGES ABOUT 10 AM.
--- NOTE | 2022-12-27 10:10 | CM.ED ---
MARTI Note MARTI called Kaylie at [facility]. Patient was referred to [facility] but they will not have answer till after 10-10:30am. MARTI updated patient and her . Michelle LARES
--- NOTE | 2022-12-27 10:40 | CM.ED ---
MARTI was advised by Dannielle at [facility] that [facility] had no beds so patient would be referred to [facility]. MARTI updated MIKE Granado and patient and her . Michelle LARES
--- NOTE | 2022-12-27 11:09 | ED.RN ---
EMILIA CALLED, INQUIRED ABOUT PT POTASSIUM, WHICH WAS TREATED. REPORTS THEY WILL CALL BACK.
--- NOTE | 2022-12-27 11:26 | ED.RN ---
MANAN FROM [facility][1] CALLED TO CONFIRM ACCEPTANCE TO [facility]
--- NOTE | 2022-12-27 11:27 | CM.ED ---
MARTI was advised by the RN that patient accepted at [facility]. [facility] with accepting MD Dr. Villalobos. RN to call report and pathology secretary to arrange transport. Plan: [facility] Michelle LARES
[2022-12-27] MEDS: hydrOXYzine PAM 25 MG Capsule 50 MG PO (12:03)
--- NOTE | 2022-12-27 12:49 | ED.RN ---
REPORT CALLED TO MARCELLE ON [facility] AT THIS TIME.
== END 2022-12-27 12:16 ==
PROVIDERS: Emergency Provider Emergency Medicine; PCP Family Medicine; Visit Provider Emergency Medicine
DX: F32.A Depression, unspecified (principal); F10.129 Alcohol abuse with intoxication, unspecified; R45.851 Suicidal ideations; E87.6 Hypokalemia; F17.210 Nicotine dependence, cigarettes, uncomplicated; F41.9 Anxiety disorder, unspecified; E66.9 Obesity, unspecified; Z79.899 Other long term (current) drug therapy
CPT/HCPCS: 36415; 80048; 80307; 82077; 84703; 85025; 87811; 93005; 99283

== ENCOUNTER → 2023-01-17 | Outpatient (CLI) | payer MEDICAID, SELFPAY ==
[2023-01-17 17:50] LABS: Anion Gap 7 (5-15); BUN 13 mg/dL (7-18); BUN/Creat Ratio 16.2 RATIO (10-20); Calcium,Total 9.1 mg/dL (8.5-10.1); Chloride 107 mmol/L (98-107); EST Glomerular Filtration Rate 82 mL/min (>60); Est Glom Filt Rate - Afr Amer 100 mL/min (>60); Glucose 101 mg/dL (74-106); Potassium 3.2 mmol/L (3.5-5.1); Sodium Level 142 mmol/L (136-145)
== END | disposition home or self-care (01) ==
LOC: MFPLAB 15:02
PROVIDERS: Nurse Practitioner Family; PCP Family Medicine; Visit Provider Family Medicine
DX: E87.6 Hypokalemia (principal)
CPT/HCPCS: 36415; 80048